=== PATIENT | male | born 1965 | race Caucasian/White ===

== ENCOUNTER → 2018-11-22 | Outpatient (CLI) | payer OTHER ==
[~2018-11-22] MED LIST: AZIT250 PO; CARI350 PO; CEPH500 PO; DIAZ10 PO; DIAZ5 PO; GABA300 PO; GABA600 PO; HYDMOR2 PO; K-Dur10 MEQ PO; LEVFLO500 PO; Lasix20 MG PO; METO2.5 PO; OXYACE5T PO; OXYC30 PO; OXYC5 PO; PENVK500 PO; POTCHL10ER PO; PRED10 PO; PRED20 PO; Percocet 5-3251 EACH PO; RXHYDMOR2 PO; TRAM50 PO
[2018-11-22 17:00] LABS: BASOPHILS ABSOLUTE AUTO 0.08 K/mm3 (0.00-0.23); BASOPHILS PERCENT AUTO 1 % (0-2); EOSINOPHILS ABSOLUTE AUTO 0.29 K/mm3 (0.00-0.68); EOSINOPHILS PERCENT AUTO 4 % (0-6); Hemoglobin 15.1 g/dL (13.5-17.5); IMMATURE GRAN ABSOLUTE AUTO 0.03 K/mm3 (0.00-0.10); IMMATURE GRAN PERCENT AUTO 0 % (0-1); LYMPHOCYTES ABSOLUTE AUTO 1.88 K/mm3 (0.84-5.20); LYMPHOCYTES PERCENT AUTO 28 % (21-46); MONOCYTES ABSOLUTE AUTO 0.78 K/mm3 (0.16-1.47); MONOCYTES PERCENT AUTO 12 % (4-13); Mean Corpuscular HGB 29.8 pg (26.0-34.0); Mean Corpuscular HGB Conc 32.8 g/dL (31.5-36.5); Mean Corpuscular Volume 91 fL (80-100); NEUTROPHILS ABSOLUTE AUTO 3.67 K/mm3 (1.96-9.15); NEUTROPHILS PERCENT AUTO 55 % (41-73); Platelet Count 247 K/mm3 (150-400); RDW Coefficient Variation 14.2 % (11.7-14.2); RDW Standard Deviation 47.7 fL (35.1-46.3); Red Blood Cell Count 5.06 M/mm3 (4.30-5.90); White Blood Cell Count 6.73 K/mm3 (4.00-11.30)
[2018-11-22 17:11] LABS: Alanine Aminotransfer (ALT/SGP 27 U/L (12-78); Albumin, Blood 3.8 g/dL (3.4-5.0); Albumin/Globulin Ratio 1.2 (0.8-1.8); Alk Phos 68 U/L (40-126); Anion Gap 9 mmol/L (6-16); Aspartate Aminotrans (AST/SGOT 19 U/L (12-37); Bilirubin, Total 0.3 mg/dL (0.1-1.0); Blood Urea Nitrogen 17 mg/dL (8-24); Bun/Creatinine Ratio 20.2 (12.0-20.0); CO2, Blood 28 mmol/L (21-32); Calcium, Blood 8.8 mg/dL (8.5-10.1); Chloride, Blood 101 mmol/L (98-108); Creatinine, Blood 0.84 mg/dL (0.60-1.20); Globulin, Blood 3.3 g/dL (2.2-4.0); Glomerular Filtration Rate >60 (60-); Glucose, Blood 84 mg/dL (70-99); Potassium, Blood 4.1 mmol/L (3.5-5.5); Sodium, Blood 138 mmol/L (136-145); Total Protein, Blood 7.1 g/dL (6.4-8.2)
== END | disposition home or self-care (01) ==
LOC: LAB EV 16:56 → LAB SHORT 16:56
PROVIDERS: Physician Assistant
DX: R60.9 Edema, unspecified (principal)
CPT/HCPCS: 80053; 83690; 85025

== ENCOUNTER 2019-04-03 22:00 | Emergency (ER) | payer OTHER ==
[~2019-04-03] VITALS: Ht 185.4 cm; Wt 124.7 kg
[2019-04-03 23:57] LABS: BASOPHILS ABSOLUTE AUTO 0.07 K/mm3 (0.00-0.23); BASOPHILS PERCENT AUTO 1 % (0-2); EOSINOPHILS PERCENT AUTO 1 % (0-6); Hematocrit 42.7 % (37.0-53.0); Hemoglobin 13.9 g/dL (13.5-17.5); IMMATURE GRAN ABSOLUTE AUTO 0.04 K/mm3 (0.00-0.10); IMMATURE GRAN PERCENT AUTO 0 % (0-1); LYMPHOCYTES ABSOLUTE AUTO 1.83 K/mm3 (0.84-5.20); LYMPHOCYTES PERCENT AUTO 14 % (21-46); MONOCYTES ABSOLUTE AUTO 1.48 K/mm3 (0.16-1.47); MONOCYTES PERCENT AUTO 11 % (4-13); Mean Corpuscular HGB 30.2 pg (26.0-34.0); Mean Corpuscular HGB Conc 32.6 g/dL (31.5-36.5); Mean Corpuscular Volume 93 fL (80-100); NEUTROPHILS ABSOLUTE AUTO 9.68 K/mm3 (1.96-9.15); NEUTROPHILS PERCENT AUTO 73 % (41-73); Platelet Count 235 K/mm3 (150-400); RDW Coefficient Variation 13.8 % (11.7-14.2); RDW Standard Deviation 47.2 fL (35.1-46.3); Red Blood Cell Count 4.61 M/mm3 (4.30-5.90)
[2019-04-04 00:16] LABS: International Normalized Ratio 1.1; Prothrombin Time Results 11.6 Sec (9.7-11.5)
[2019-04-04 00:17] LABS: Alanine Aminotransfer (ALT/SGP 37 U/L (12-78); Albumin, Blood 3.5 g/dL (3.4-5.0); Albumin/Globulin Ratio 0.9 (0.8-1.8); Alk Phos 88 U/L (50-136); Anion Gap 8 mmol/L (6-16); Aspartate Aminotrans (AST/SGOT 36 U/L (12-37); Bilirubin, Total 0.4 mg/dL (0.1-1.0); Blood Urea Nitrogen 16 mg/dL (8-24); Bun/Creatinine Ratio 18.2 (12.0-20.0); CO2, Blood 25 mmol/L (21-32); Calcium, Blood 8.6 mg/dL (8.5-10.1); Chloride, Blood 102 mmol/L (98-108); Creatinine, Blood 0.88 mg/dL (0.60-1.20); Globulin, Blood 3.7 g/dL (2.2-4.0); Glomerular Filtration Rate >60 (60-); Glucose, Blood 97 mg/dL (70-99); Potassium, Blood 3.9 mmol/L (3.5-5.5); Sodium, Blood 135 mmol/L (136-145); Total Protein, Blood 7.2 g/dL (6.4-8.2)
[2019-04-04] MEDS ORDERED: Augmentin 875-1 EACH PO (02:24)
== END 2019-04-04 03:00 | disposition home or self-care (01) ==
LOC: ER 22:00
PROVIDERS: Emergency Medicine
DX: J32.9 Chronic sinusitis, unspecified (principal); L98.499 Non-pressure chronic ulcer of skin of other sites with unspecified severity; Z88.6 Allergy status to analgesic agent; Z88.5 Allergy status to narcotic agent; Z88.8 Allergy status to other drugs, medicaments and biological substances; Z87.891 Personal history of nicotine dependence
CPT/HCPCS: 36415; 70450; 70486; 71046; 80053; 84145; 85025; 85610; 85730; 93005; 93010; 96372; 99284-25; J2270; J7030

== ENCOUNTER 2019-06-29 10:53 | Inpatient (IN) | payer OTHER ==
[~2019-06-29] VITALS: Ht 185.4 cm; Wt 130.0 kg
[~2019-06-29 10:53] MED LIST changes: +Augmentin 875-1 EACH PO
[2019-06-29 12:01] LABS: BASOPHILS ABSOLUTE AUTO 0.05 K/mm3 (0.00-0.23); BASOPHILS PERCENT AUTO 0 % (0-2); EOSINOPHILS PERCENT AUTO 0 % (0-6); Hematocrit 44.7 % (37.0-53.0); Hemoglobin 14.9 g/dL (13.5-17.5); IMMATURE GRAN ABSOLUTE AUTO 0.11 K/mm3 (0.00-0.10); IMMATURE GRAN PERCENT AUTO 1 % (0-1); LYMPHOCYTES PERCENT AUTO 4 % (21-46); MONOCYTES ABSOLUTE AUTO 0.66 K/mm3 (0.16-1.47); MONOCYTES PERCENT AUTO 4 % (4-13); Mean Corpuscular HGB 30.4 pg (26.0-34.0); Mean Corpuscular HGB Conc 33.3 g/dL (31.5-36.5); Mean Corpuscular Volume 91 fL (80-100); Mean Platelet Volume 10.7 fL (9.1-12.4); NEUTROPHILS ABSOLUTE AUTO 14.45 K/mm3 (1.96-9.15); NEUTROPHILS PERCENT AUTO 91 % (41-73); Platelet Count 193 K/mm3 (150-400); RDW Coefficient Variation 14.1 % (11.7-14.2); RDW Standard Deviation 47.8 fL (35.1-46.3); White Blood Cell Count 15.87 K/mm3 (4.00-11.30)
[2019-06-29 12:21] LABS: Alanine Aminotransfer (ALT/SGP 25 U/L (12-78); Albumin/Globulin Ratio 0.8 (0.8-1.8); Alk Phos 62 U/L (50-136); Anion Gap 8 mmol/L (6-16); Aspartate Aminotrans (AST/SGOT 21 U/L (12-37); Bilirubin, Total 0.7 mg/dL (0.1-1.0); Blood Urea Nitrogen 18 mg/dL (8-24); Bun/Creatinine Ratio 18.7 (12.0-20.0); CO2, Blood 23 mmol/L (21-32); Calcium, Blood 8.5 mg/dL (8.5-10.1); Chloride, Blood 99 mmol/L (98-108); Creatinine, Blood 0.97 mg/dL (0.60-1.20); Glomerular Filtration Rate >60 (60-); Glucose, Blood 123 mg/dL (70-99); Magnesium, Blood 2.1 mg/dL (1.6-2.4); Potassium, Blood 3.8 mmol/L (3.5-5.5); Sodium, Blood 130 mmol/L (136-145)
--- NOTE | 2019-06-29 16:48 | NUR ---
SUMMARY PT ADMITTED FROM THE ER FOR L LEG CELLULITIS, PT ALERT AND ORIENTED, ABLE TO STAND AND PIVOT FROM THE GURNEY TO THE BED, PT IS PLEASANT AND COOPERTIVE WITH CARE, MED PER EMAR FOR C/O L LEG PAIN, L LEG IS RED, HOT, SWOLLEN, AND EDEMETOUS, OUTLINED WITH A PEN, PT ORIENTED TO THE ROOM AND CALL SYSTEM, CONT PULSE OX STARTED FOR SNORING RESPIRATIONS WHEN PT ASLEEP ON PAIN MEDICATIONS, VSS, NO ACUTE CHANGES, WILL CONT TO MONITOR
--- NOTE | 2019-06-29 20:42 | NUR ---
NOTIFIED BY GLOBE CLEANER THAT PT HAD A 10 BEAT RUN OF SVT WITH 2 BEATS NSR AND THEN ANOTHER 9 BEATS OF SVT BEFORE RETURNING TO SINUS TACH IN 110'S WHICH HAS BEEN WHAT PT HAS BEEN RUNNING SINCE ADMIT. NOTIFIED BASSEM EMANUEL REGUARDING SVT. BASSEM ORDERED A BMP TO BE DRAWN AT THIS TIME. PT DENIES SOB, HEART PALPITATIONS, OR ANY OTHER SYMPTOMS ASIDE FROM DISCOMFORT OF HIS L LEG. WILL CONTINUE TO MONITOR.
[2019-06-29 21:23] LABS: Anion Gap 7 mmol/L (6-16); Blood Urea Nitrogen 17 mg/dL (8-24); Bun/Creatinine Ratio 22.6 (12.0-20.0); CO2, Blood 22 mmol/L (21-32); Chloride, Blood 103 mmol/L (98-108); Creatinine, Blood 0.75 mg/dL (0.60-1.20); Glomerular Filtration Rate >60 (60-); Glucose, Blood 130 mg/dL (70-99); Potassium, Blood 3.8 mmol/L (3.5-5.5); Sodium, Blood 132 mmol/L (136-145)
--- NOTE | 2019-06-30 05:08 | NUR ---
SENIOR ASIC ENGINEER SUMMARY PT AAOX4 AND PLEASANT. LLE RED AND SWOLLEN, HOWEVER REDNESS HAS NOT EXTENDED PAST THE MARKED LINES. PT REPORTS LEG VERY PAINFUL, MEDICATED WITH DILAUDID PER EMAR WHICH PT REPORTS PROVIDES ADEQUATE PAIN RELIEF. PT HR HAS BEEN IN 100-110'S SINCE ADMIT. NOTIFIED BY TELE THAT PT HR HAD SLOWLY INCREASED TO HIGH 120'S. CHECKED PT'S TEMP WHICH WAS 102 DEGREES. GAVE PT TYLENOL, TEMP WITH MORNING VITALS 98.4 AND HR 90-100. OTHER VSS, WILL CONTINUE TO MONITOR.
[2019-06-30 08:14] LABS: BASOPHILS ABSOLUTE AUTO 0.04 K/mm3 (0.00-0.23); BASOPHILS PERCENT AUTO 0 % (0-2); EOSINOPHILS ABSOLUTE AUTO 0.03 K/mm3 (0.00-0.68); EOSINOPHILS PERCENT AUTO 0 % (0-6); Hematocrit 44.3 % (37.0-53.0); Hemoglobin 14.6 g/dL (13.5-17.5); IMMATURE GRAN ABSOLUTE AUTO 0.08 K/mm3 (0.00-0.10); IMMATURE GRAN PERCENT AUTO 1 % (0-1); LYMPHOCYTES ABSOLUTE AUTO 0.53 K/mm3 (0.84-5.20); LYMPHOCYTES PERCENT AUTO 4 % (21-46); MONOCYTES ABSOLUTE AUTO 0.53 K/mm3 (0.16-1.47); MONOCYTES PERCENT AUTO 4 % (4-13); Mean Corpuscular Volume 91 fL (80-100); Mean Platelet Volume 10.9 fL (9.1-12.4); NEUTROPHILS PERCENT AUTO 90 % (41-73); Platelet Count 155 K/mm3 (150-400); RDW Coefficient Variation 14.2 % (11.7-14.2); RDW Standard Deviation 47.7 fL (35.1-46.3); Red Blood Cell Count 4.86 M/mm3 (4.30-5.90); White Blood Cell Count 12.21 K/mm3 (4.00-11.30)
[2019-06-30 08:37] LABS: Alanine Aminotransfer (ALT/SGP 26 U/L (12-78); Albumin, Blood 2.5 g/dL (3.4-5.0); Albumin/Globulin Ratio 0.6 (0.8-1.8); Alk Phos 74 U/L (50-136); Anion Gap 5 mmol/L (6-16); Aspartate Aminotrans (AST/SGOT 35 U/L (12-37); Bilirubin, Total 0.7 mg/dL (0.1-1.0); Blood Urea Nitrogen 14 mg/dL (8-24); Bun/Creatinine Ratio 17.3 (12.0-20.0); CO2, Blood 27 mmol/L (21-32); Calcium, Blood 8.2 mg/dL (8.5-10.1); Chloride, Blood 101 mmol/L (98-108); Creatinine, Blood 0.81 mg/dL (0.60-1.20); Glomerular Filtration Rate >60 (60-); Glucose, Blood 106 mg/dL (70-99); Potassium, Blood 3.7 mmol/L (3.5-5.5); Sodium, Blood 133 mmol/L (136-145); Total Protein, Blood 6.5 g/dL (6.4-8.2)
--- NOTE | 2019-06-30 17:17 | NUR ---
SUMMARY PT RESTING IN BED WATCHING TV, PT HAS BEEN ALERT AND ORIENTED, SLEPT OFF AND ON T/O THE DAY, PT ABLE TO STAND AND USE THE WALKER TO GET TO THE RESTROOM, PT ALSO WAS ABLE TO STAND FOR A SHOWER FOR THIS MORNING ALSO, PT MED PER EMAR FOR PAIN, REDNESS TO THE LEFT LEG WAS OUTLINED YESTERDAY, IT HAS NOT INCREASED IN SIZE, PT HAS HAD SEVERAL FRIENDS AND HIS GIRLFRIEND IN TO VISIT, PT MED PER EMAR FOR FEVER OFF AND ON WITH GOOD RESULTS, VSS, NO ACUTE CHANGES, WILL CONT TO MONITOR
--- NOTE | 2019-06-30 22:33 | NUR ---
@2045 ASSUMED CARE OF PT. TRANSFERRED INTO ROOM 341. COMFORT CARE/HOSPICE, FAMILY AT BEDSIDE. FAMILY DENIES NEEDS AT THIS TIME. WILL CONT TO MONITOR.
--- NOTE | 2019-07-01 03:51 | NUR ---
SHIFT SUMMARY- PT. SLEPT ON/OFF T/O THE SHIFT. C/O PAIN IN THE LT LEG. DILAUDID GIVEN PER EMAR, PT. TOLERATED WELL. HR AT 117 WITH TEMP OF 102. TYLENOL GIVEN. RECHECK OF TEMP AT 98.8. PT. ON CONTINOUS SLEEP OXIMETRY FOR POSS SLEEP APNEA. LT. LEG REMAINS RED AND SWOLLEN, HAS BEEN UP WITH WALKER AND 1 ASSIST TO THE BATHROOM. DENIES ANY NEEDS AT THIS TIME. IV FLUIDS RUNNING. CALL LIGHT WITHIN REACH AND SIDE RAILS UP X2. WILL CONT TO MONITOR.
--- NOTE | 2019-07-01 05:13 | NUR ---
POWERGLIDE NOT WORKING. PT. A DIFFICULT STICK. CHARGE NURSE FRANCES CARRILLO NOTIFIED. CALL PLACED TO SEVERAL DEPTS. FOR ASSISTANCE IN RESTARTING IV. PT. IS RESTING QUIETLY IN BED, NO APPARENT DISTRESS NOTED. WILL CONT TO ATTEMPT TO REESTABLISH IV ACCESS FOR SCHEDULED IV ABX'S AND FLUIDS.
[2019-07-01 05:25] LABS: BASOPHILS ABSOLUTE AUTO 0.04 K/mm3 (0.00-0.23); BASOPHILS PERCENT AUTO 0 % (0-2); EOSINOPHILS ABSOLUTE AUTO 0.01 K/mm3 (0.00-0.68); EOSINOPHILS PERCENT AUTO 0 % (0-6); Hematocrit 40.1 % (37.0-53.0); Hemoglobin 13.3 g/dL (13.5-17.5); IMMATURE GRAN ABSOLUTE AUTO 0.08 K/mm3 (0.00-0.10); IMMATURE GRAN PERCENT AUTO 1 % (0-1); LYMPHOCYTES ABSOLUTE AUTO 0.52 K/mm3 (0.84-5.20); LYMPHOCYTES PERCENT AUTO 4 % (21-46); MONOCYTES ABSOLUTE AUTO 0.97 K/mm3 (0.16-1.47); MONOCYTES PERCENT AUTO 8 % (4-13); Mean Corpuscular HGB 30.1 pg (26.0-34.0); Mean Corpuscular HGB Conc 33.2 g/dL (31.5-36.5); Mean Corpuscular Volume 91 fL (80-100); Mean Platelet Volume 10.7 fL (9.1-12.4); NEUTROPHILS ABSOLUTE AUTO 10.22 K/mm3 (1.96-9.15); NEUTROPHILS PERCENT AUTO 86 % (41-73); Platelet Count 167 K/mm3 (150-400); RDW Coefficient Variation 14.2 % (11.7-14.2); RDW Standard Deviation 47.8 fL (35.1-46.3); Red Blood Cell Count 4.42 M/mm3 (4.30-5.90); White Blood Cell Count 11.84 K/mm3 (4.00-11.30)
[2019-07-01 05:54] LABS: Anion Gap 8 mmol/L (6-16); Blood Urea Nitrogen 12 mg/dL (8-24); Bun/Creatinine Ratio 18.3 (12.0-20.0); CO2, Blood 24 mmol/L (21-32); Calcium, Blood 7.8 mg/dL (8.5-10.1); Chloride, Blood 102 mmol/L (98-108); Creatinine, Blood 0.66 mg/dL (0.60-1.20); Glomerular Filtration Rate >60 (60-); Glucose, Blood 134 mg/dL (70-99); Potassium, Blood 3.1 mmol/L (3.5-5.5); Sodium, Blood 134 mmol/L (136-145)
--- NOTE | 2019-07-01 18:34 | NUR ---
PATIENT IS ALERT AND ORIENTED AND COOPERATIVE WITH CARE. PATIENT CALLS VIDHI TO USE THE BATHROOM. PATIENT USES THE FWW WITH SBA TO THE BATHROOM. HE CAN PIVOT ON HIS RIGHT FOOT AND KEEP PRESSURE OFF HIS LEFT FOOT. PATIENT IS CURRENTLY ON HIS WAY OUTSIDE TO SMOKE A CIGAR. PATIENT COMPLAINED OF PAIN THROUGHOUT THE DAY, TREATED PER EMAR.
[2019-07-02 05:10] LABS: BASOPHILS ABSOLUTE AUTO 0.05 K/mm3 (0.00-0.23); BASOPHILS PERCENT AUTO 0 % (0-2); EOSINOPHILS ABSOLUTE AUTO 0.16 K/mm3 (0.00-0.68); EOSINOPHILS PERCENT AUTO 1 % (0-6); Hemoglobin 13.3 g/dL (13.5-17.5); IMMATURE GRAN PERCENT AUTO 2 % (0-1); LYMPHOCYTES ABSOLUTE AUTO 1.06 K/mm3 (0.84-5.20); LYMPHOCYTES PERCENT AUTO 8 % (21-46); MONOCYTES ABSOLUTE AUTO 1.44 K/mm3 (0.16-1.47); MONOCYTES PERCENT AUTO 11 % (4-13); Mean Corpuscular HGB 30.5 pg (26.0-34.0); Mean Corpuscular HGB Conc 33.3 g/dL (31.5-36.5); Mean Corpuscular Volume 92 fL (80-100); Mean Platelet Volume 10.6 fL (9.1-12.4); NEUTROPHILS ABSOLUTE AUTO 10.29 K/mm3 (1.96-9.15); NEUTROPHILS PERCENT AUTO 78 % (41-73); Platelet Count 212 K/mm3 (150-400); RDW Coefficient Variation 14.1 % (11.7-14.2); RDW Standard Deviation 48.5 fL (35.1-46.3); Red Blood Cell Count 4.36 M/mm3 (4.30-5.90)
[2019-07-02 05:33] LABS: Anion Gap 8 mmol/L (6-16); Blood Urea Nitrogen 12 mg/dL (8-24); CO2, Blood 27 mmol/L (21-32); Calcium, Blood 7.9 mg/dL (8.5-10.1); Chloride, Blood 100 mmol/L (98-108); Creatinine, Blood 0.75 mg/dL (0.60-1.20); Glomerular Filtration Rate >60 (60-); Glucose, Blood 134 mg/dL (70-99); Potassium, Blood 3.2 mmol/L (3.5-5.5); Sodium, Blood 135 mmol/L (136-145)
--- NOTE | 2019-07-02 05:48 | NUR ---
SHIFT SUMMARY A/O INDEPENDENT IN ROOM. C/O PAIN IN L LEG AND MEDICATED PER EMAR X3. SAID HE COULDN'T GET MUCH SLEEP BECAUSE HE WAS WORRYING ABOUT HIS GF WHO HAD CALLED HIM SAYING SHE WAS HEARING VOICES IN HER HEAD AGAIN AND WAS GOING TO KILL HERSELF. PT SAID HE CALLED THE POLICE TO GO CHECK ON HER AT HOME. HE SAID HE WAS WORRYING ALL NIGHT ABOUT HER AND THAT IT ADDED MORE STRESS TO HIS LIFE. SS AND SPIRITUAL CARE CONSULT ORDERED FOR THIS.
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
--- NOTE | 2019-07-02 18:42 | NUR ---
PT REMAINS A/0, INDEPENDENT IN THE ROOM, MEDICATED FOR PAIN TO HIS LEFT LEG X3 TODAY PER EMAR. IV LASIX ADDED TO MEDICATIONS, NO ACUTE CHANGES NOTED THIS SHIFT. WILL CONTINUE TO MONITOR AND REPORT TO ONCOMING RN
[2019-07-03 04:59] LABS: BASOPHILS ABSOLUTE AUTO 0.05 K/mm3 (0.00-0.23); BASOPHILS PERCENT AUTO 0 % (0-2); EOSINOPHILS ABSOLUTE AUTO 0.13 K/mm3 (0.00-0.68); EOSINOPHILS PERCENT AUTO 1 % (0-6); Hematocrit 39.1 % (37.0-53.0); Hemoglobin 12.9 g/dL (13.5-17.5); IMMATURE GRAN ABSOLUTE AUTO 0.38 K/mm3 (0.00-0.10); IMMATURE GRAN PERCENT AUTO 3 % (0-1); LYMPHOCYTES ABSOLUTE AUTO 1.04 K/mm3 (0.84-5.20); LYMPHOCYTES PERCENT AUTO 9 % (21-46); MONOCYTES ABSOLUTE AUTO 1.24 K/mm3 (0.16-1.47); MONOCYTES PERCENT AUTO 10 % (4-13); Mean Corpuscular HGB 29.4 pg (26.0-34.0); Mean Platelet Volume 10.6 fL (9.1-12.4); NEUTROPHILS ABSOLUTE AUTO 9.18 K/mm3 (1.96-9.15); NEUTROPHILS PERCENT AUTO 76 % (41-73); Platelet Count 238 K/mm3 (150-400); RDW Coefficient Variation 14.1 % (11.7-14.2); RDW Standard Deviation 46.1 fL (35.1-46.3); Red Blood Cell Count 4.39 M/mm3 (4.30-5.90); White Blood Cell Count 12.02 K/mm3 (4.00-11.30)
[2019-07-03 05:00] LABS: Mean Corpuscular Volume 89 fL (80-100)
[2019-07-03 05:21] LABS: Anion Gap 8 mmol/L (6-16); Blood Urea Nitrogen 14 mg/dL (8-24); Bun/Creatinine Ratio 19.8 (12.0-20.0); CO2, Blood 31 mmol/L (21-32); Calcium, Blood 8.1 mg/dL (8.5-10.1); Chloride, Blood 94 mmol/L (98-108); Creatinine, Blood 0.71 mg/dL (0.60-1.20); Glomerular Filtration Rate >60 (60-); Glucose, Blood 131 mg/dL (70-99); Potassium, Blood 3.1 mmol/L (3.5-5.5); Sodium, Blood 133 mmol/L (136-145)
--- NOTE | 2019-07-03 06:35 | NUR ---
SHIFT SUMMARY PT C/O PAIN AND MEDICATED PER EMAR. KEPT L LEG ELEVATED. HE WAS ABLE TO GET TO SLEEP AFTER PAIN MED ADMINISTRATIONS. SLEPT ON AND OFF T/O NIGHT. CALL LIGHT IN REACH.
--- NOTE | 2019-07-03 13:42 | NUR ---
Patient is lying in bed with his leg elevated. Patient begins to tell me about his desire to live a better life and so we talk about what that might look like and how he might get there. I provide; empathic listening, pastoral school counsellor, inspirational material and prayer. Patient responds well and voices appreciation for the time and care.
--- NOTE | 2019-07-03 18:21 | NUR ---
PATIENTS LEG CONTINUES TO WEEP. SCOTT HAS BEEN REPLACED MULTIPLE TIMES THIS SHIFT. PATIENT CONTINUES TO GO OUT TO SMOKE . HE IS PLEASANT AND COMPLIANT WITH CARES. PAIN MEDS REQUESTED AND GIVEN PER EMAR.
--- NOTE | 2019-07-04 04:26 | NUR ---
TORPEDO SPECIALIST SUMMARY NO ACUTE CHANGES THIS SHIFT. PT AAOX4 AND PLEASANT. CONTINUES TO HAVE REDNESS/SWELLING OF LLE ALONG WITH PAIN. MEDICATED WITH IV DILAUDID PER EMAR WITH GOOD PAIN RELIEF. PT HAS BEEN ABLE TO SLEEP MOST OF THE NIGHT. CONTINUING IV ABX. VSS, WILL CONTINUE TO MONITOR.
[2019-07-04 06:58] LABS: BASOPHILS ABSOLUTE AUTO 0.06 K/mm3 (0.00-0.23); BASOPHILS PERCENT AUTO 1 % (0-2); EOSINOPHILS ABSOLUTE AUTO 0.17 K/mm3 (0.00-0.68); EOSINOPHILS PERCENT AUTO 2 % (0-6); Hematocrit 37.4 % (37.0-53.0); Hemoglobin 12.5 g/dL (13.5-17.5); IMMATURE GRAN ABSOLUTE AUTO 0.56 K/mm3 (0.00-0.10); IMMATURE GRAN PERCENT AUTO 5 % (0-1); LYMPHOCYTES ABSOLUTE AUTO 1.26 K/mm3 (0.84-5.20); LYMPHOCYTES PERCENT AUTO 11 % (21-46); MONOCYTES PERCENT AUTO 13 % (4-13); Mean Corpuscular HGB 29.6 pg (26.0-34.0); Mean Corpuscular HGB Conc 33.4 g/dL (31.5-36.5); Mean Corpuscular Volume 89 fL (80-100); Mean Platelet Volume 10.5 fL (9.1-12.4); NEUTROPHILS ABSOLUTE AUTO 7.76 K/mm3 (1.96-9.15); NEUTROPHILS PERCENT AUTO 69 % (41-73); Platelet Count 301 K/mm3 (150-400); RDW Coefficient Variation 14.1 % (11.7-14.2); RDW Standard Deviation 45.6 fL (35.1-46.3); Red Blood Cell Count 4.22 M/mm3 (4.30-5.90); White Blood Cell Count 11.21 K/mm3 (4.00-11.30)
[2019-07-04 07:10] LABS: Anion Gap 8 mmol/L (6-16); Blood Urea Nitrogen 13 mg/dL (8-24); Bun/Creatinine Ratio 20.7 (12.0-20.0); CO2, Blood 34 mmol/L (21-32); Chloride, Blood 92 mmol/L (98-108); Creatinine, Blood 0.63 mg/dL (0.60-1.20); Glomerular Filtration Rate >60 (60-); Glucose, Blood 104 mg/dL (70-99); Magnesium, Blood 2.3 mg/dL (1.6-2.4); Phosphorus, Blood 3.3 mg/dL (2.5-4.9); Potassium, Blood 3.3 mmol/L (3.5-5.5); Sodium, Blood 134 mmol/L (136-145)
--- NOTE | 2019-07-04 19:27 | NUR ---
summary PT IS A/O X4, PLEASANT AFFECT. ABLE TO AMBULATE SHORT DISTANCE TO BR UNASSISTED. L LEG CONTINUES RED, WARM, WEEPING, EDEMATOUS, 4+. REDNESS IS MAPPED, APPEARS TO BE RECEDING. PT STATE SENSATION LLE IMPROVED. HE STATE CONTINUING PAIN LLE BUT MORE R KNEE. HAVE GIVEN IV DILAUDID 2MG X2, PO DILAUDID 1MG X1, NORCO X2 FOR PAIN CONTROL. IV ANTIBX CONTINUE HOWEVER MAINTAINING IV ACCESS HAS BEEN AN ISSUE TODAY. THIS AM NOC RN REPORT RUE POWERGLIDE FAILED, PORTFOLIO MANAGEMENT MARKETING IN TO ASSESS, D/C'D @ THAT TIME. LAC 22GA IV FAILED APPROX 1000. PIE BAKER IN TO START RAC 18GA w ULTRASOUND HOWEVER 1ST ATTEMPT TO USE FOR ANTIBX FAILED/DC'D. NO IV ACCESS, PHARMACY NOTIFIED, NOC PORTFOLIO MANAGEMENT MARKETING WILL ATTEMPT TO PLACE POWERGLIDE.
--- NOTE | 2019-07-05 04:49 | NUR ---
SHIFT SUMMARY NEW POWERGLIDE ESTABLISHED TO SABRINA. PT BEHIND ON ABX DUE TO LOSS OF IV ACCESS DURING DAYSHIFT. MIDNIGHT DOSES OF ABX WERE HELD PER PHARMACIST INSTRUCTION. PT. MEDICATED FOR PAIN PRN PER ORDERS. LLE REMAINS SWOLLEN +4 EDEMA, HOT TO TOUCH AND WEEPING YELLOW DRAINAGE. PT HAS BEEN INDEPENDENT IN THE ROOM USES HIS WHEELCHAIR. PT HAS RESTED MOST OF THE NIGHT. WAKES UP OCCSAIONALLY TO REQUESTS FOOD. NO ACUTE CHANGES OVERNIGHT. WILL CONTINUE TO MONITOR AND REPORT TO ONCOMING RN.
--- NOTE | 2019-07-05 15:30 | NUR ---
SUMMARY PT A/O X4 T/O DAY, GENERALLY PLEASANT HOWEVER STATE CONTINUING WEAKNESS, FATIGUE, MALAISE. L LEG CELLULITIS CONTINUES. LLE EDEMATOUS 4+, REDNESS HAS BEEN RECEDING SOMEWHAT, CONTINUES WARM TO TOUCH & VERY TENDER/PAINFUL PER PT. HAVE GIVEN NORCO & PROVIDED ICE PACKS FOR RELIEF. PT STATE HX LYMPHEDEMA LEGS, R FOOT EDEMA NOTED WELL. HE STATE R KNEE CAUSES DISCOMFORT/PAIN, STATE NEED TO GET UP & AMBULATE FOR RELIEF, ENCOURAGED. HE WENT OUTSIDE X1 w W/C IND THIS AM. IV ANTIBX CONTINUE @ THIS TIME. SABRINA PG IV SITE PATENT. VSS, AFEBRILE.
[2019-07-05 15:48] LABS: Vancomycin, Trough 17.9 ug/mL (5.0-10.0)
[2019-07-06 05:53] LABS: Anion Gap 7 mmol/L (6-16); Blood Urea Nitrogen 21 mg/dL (8-24); Bun/Creatinine Ratio 25.6 (12.0-20.0); CO2, Blood 36 mmol/L (21-32); Calcium, Blood 7.9 mg/dL (8.5-10.1); Chloride, Blood 90 mmol/L (98-108); Creatinine, Blood 0.82 mg/dL (0.60-1.20); Glomerular Filtration Rate >60 (60-); Glucose, Blood 114 mg/dL (70-99); Phosphorus, Blood 3.1 mg/dL (2.5-4.9); Potassium, Blood 3.2 mmol/L (3.5-5.5); Sodium, Blood 133 mmol/L (136-145)
--- NOTE | 2019-07-06 06:21 | NUR ---
SHIFT SUMMARY PT PLEASANT, EMOTIONAL AT TIMES. LEFT LEG REMAINS RED, HOT, AND SWOLLEN. SOME WEEPING NOTED FROM LEFT LEG. RIGHT LEG SWOLLEN WELL. THIS IS BASELINE FOR PT. PT HAS LYMPHADEMA. PT COMPLAINS OF PAIN IN R KNEE AND LEFT LEG. MEDICATED WITH NORCO 10/325 1 TAB X 2 AND 1 MG DILAUDID IV X 2. PT SLEEPS OFF AND ON THROUGHOUT THE NIGHT WHEN NOT BEING WOKEN WITH PAIN. PT AMBULATED WITH WHEELCHAIR OUTSIDE WITH HIS EARLY IN SHIFT. TOLERATED AMBULATION WELL. VITAL SIGNS STABLE. NO ACUTE CHANGES. WILL CONTINUE TO MONITOR AND REPORT TO DAY RN.
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
--- NOTE | 2019-07-07 08:27 | NUR ---
SHIFT SUMMARY PATIENT ANXIOUS THROUGHOUT THE NIGHT. PATIENT'S SIGNIFICANT OTHER STOPPED BY AT THE BEGINNING OF THE SHIFT AND THEN LEFT AFTER SEVERAL HOURS. PATIENT THEN BECAME EXTREMALLY WORRIED ABOUT HER BECAUSE HE WAS UNABLE TO GET AHOLD OF HER. AND WANTED TO LEAVE AMA TO GO LOOK FOR HER. PATIENT EDUCATED ON THE PRO'S AND CON'S OF LEAVING AMA AND PATIENT EVENTUALLY DECIDED TO STAY. PATIENT ALSO EVENTUALLY ABLE TO REACH HIS SIGNFICANT OTHER AND THAT HELPED HIS ANXIETY DECREASE. HOWEVER, PATIENT CONTINUED TO BE ANXIOUS THROUGHOUT THE REST OF THE NIGHT. PATIENT DID APPEAR TO BE ABLE TO SETTLE DOWN AND FALL ASLEEP FOR SEVERAL HOURS AT THE END OF THE SHIFT. PATIENT MEDICATED FOR PAIN CHARTED. PATIENT NOW REQUESTING PO PAIN MEDICATION FIRST AND WOULD LIKE TO USE THE IV PAIN MEDICATION ONLY FOR BREAKTHROUGH PAIN NEEDED. PATIENT'S IV ABX GIVEN PER EMAR. REPORT GIVEN TO ONCOMING RN.
[2019-07-07 08:28] LABS: Albumin, Blood 2.2 g/dL (3.4-5.0); Anion Gap 9 mmol/L (6-16); Blood Urea Nitrogen 22 mg/dL (8-24); Bun/Creatinine Ratio 25.5 (12.0-20.0); CO2, Blood 37 mmol/L (21-32); Calcium, Blood 8.1 mg/dL (8.5-10.1); Chloride, Blood 88 mmol/L (98-108); Creatinine, Blood 0.86 mg/dL (0.60-1.20); Glomerular Filtration Rate >60 (60-); Glucose, Blood 109 mg/dL (70-99); Phosphorus, Blood 3.4 mg/dL (2.5-4.9); Potassium, Blood 3.1 mmol/L (3.5-5.5); Sodium, Blood 134 mmol/L (136-145)
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
[2019-07-07] MEDS ORDERED: Docusate Sodiu1 EACH PO (12:38)
[2019-07-07] MEDS ORDERED: HIGH POTENCY P1 EACH PO (12:39)
[2019-07-07] MEDS ORDERED: CEPH250A PO (12:40)
[2019-07-07] MEDS ORDERED: HYDMOR2 PO (12:40)
[2019-07-07] MEDS ORDERED: Sulfamethoxazo1 EAC4 PO (12:41)
--- NOTE | 2019-07-07 13:16 | NUR ---
DISCHARGE SUMMARY PT DISCHARGED TO HOME. PT LEFT ROOM VIA WHEELCHAIR WITH [facility] AT 1310. DC INSTRUCTIONS DISCUSSED WITH PT AT 1300. DR PIERRE CALLED NURSE AFTER MEDICATION REC COMPLETED AND FINALIZED SO NURSE CALLED PRESCRIPTION IN TO PHARMACY AT 1307. PT EDUCATED ON CELLULITIS AND MEDICATIONS. INSTRUCTED TO FOLLOW UP WITH PCP, PT AGREES. POWERGLIDE DC'D AND BELONGINGS RETURNED.
== END 2019-07-07 13:10 | disposition home or self-care (01) | DRG 871 ==
LOC: ER 10:53 → MEDS 12:27 → ENPENDDIS 07-07 11:02 → MEDS 07-07 13:10
PROVIDERS: Emergency Medicine; Internal Medicine; Nurse Practitioner Acute Care; ADMIT Internal Medicine
DX: A40.9 Streptococcal sepsis, unspecified (principal); G93.41 Metabolic encephalopathy; L03.116 Cellulitis of left lower limb; E87.1 Hypo-osmolality and hyponatremia; R65.20 Severe sepsis without septic shock; F17.210 Nicotine dependence, cigarettes, uncomplicated; Q82.0 Hereditary lymphedema; E66.9 Obesity, unspecified; E87.6 Hypokalemia; Z68.34 Body mass index [BMI] 34.0-34.9, adult; T50.2X5A Adverse effect of carbonic-anhydrase inhibitors, benzothiadiazides and other diuretics, initial encounter; Y92.239 Unspecified place in hospital as the place of occurrence of the external cause
CPT/HCPCS: 36415; 73701; 80048; 80053; 80069; 80202; 83605; 83735; 83880; 84145; 85025; 87040; 94762; 96374; 96375; 99284-25; A9270; J0690; J1170; J1650; J1940; J3370; J7030; J7050; J7120; Q9967

== ENCOUNTER 2019-07-14 10:16 | Inpatient (IN) | payer OTHER ==
[~2019-07-14] VITALS: Ht 182.9 cm; Wt 131.3 kg
[~2019-07-14 10:16] MED LIST changes: +CEPH250A PO; +Docusate Sodiu1 EACH PO; +HIGH POTENCY P1 EACH PO; +Sulfamethoxazo1 EAC4 PO
[2019-07-14 11:57] LABS: BASOPHILS PERCENT AUTO 1 % (0-2); EOSINOPHILS ABSOLUTE AUTO 0.09 K/mm3 (0.00-0.68); EOSINOPHILS PERCENT AUTO 1 % (0-6); Hematocrit 40.6 % (37.0-53.0); Hemoglobin 12.8 g/dL (13.5-17.5); IMMATURE GRAN ABSOLUTE AUTO 0.08 K/mm3 (0.00-0.10); IMMATURE GRAN PERCENT AUTO 1 % (0-1); LYMPHOCYTES PERCENT AUTO 22 % (21-46); MONOCYTES ABSOLUTE AUTO 1.14 K/mm3 (0.16-1.47); MONOCYTES PERCENT AUTO 12 % (4-13); Mean Corpuscular HGB 29.3 pg (26.0-34.0); Mean Corpuscular HGB Conc 31.5 g/dL (31.5-36.5); Mean Platelet Volume 9.3 fL (9.1-12.4); NEUTROPHILS ABSOLUTE AUTO 6.25 K/mm3 (1.96-9.15); NEUTROPHILS PERCENT AUTO 64 % (41-73); Platelet Count 776 K/mm3 (150-400); RDW Coefficient Variation 13.5 % (11.7-14.2); RDW Standard Deviation 46.8 fL (35.1-46.3); Red Blood Cell Count 4.37 M/mm3 (4.30-5.90); White Blood Cell Count 9.76 K/mm3 (4.00-11.30)
[2019-07-14 12:05] LABS: Mean Corpuscular Volume 93 fL (80-100)
[2019-07-14 12:20] LABS: Alanine Aminotransfer (ALT/SGP 23 U/L (12-78); Albumin, Blood 2.7 g/dL (3.4-5.0); Albumin/Globulin Ratio 0.5 (0.8-1.8); Alk Phos 106 U/L (50-136); Anion Gap 5 mmol/L (6-16); Aspartate Aminotrans (AST/SGOT 21 U/L (12-37); Bilirubin, Total 0.2 mg/dL (0.1-1.0); Blood Urea Nitrogen 13 mg/dL (8-24); Bun/Creatinine Ratio 19.4 (12.0-20.0); CO2, Blood 29 mmol/L (21-32); Chloride, Blood 104 mmol/L (98-108); Creatinine, Blood 0.67 mg/dL (0.60-1.20); Globulin, Blood 5.1 g/dL (2.2-4.0); Glomerular Filtration Rate >60 (60-); Glucose, Blood 80 mg/dL (70-99); Potassium, Blood 4.6 mmol/L (3.5-5.5); Sodium, Blood 138 mmol/L (136-145); Total Protein, Blood 7.8 g/dL (6.4-8.2)
[2019-07-14] MEDS ORDERED: K-Dur20 MEQ PO (14:05)
[2019-07-14] MEDS ORDERED: SPIR50 PO (14:06)
[2019-07-14] MEDS ORDERED: Potassium Chlo20 ME1 PO (14:06)
[2019-07-14] MEDS ORDERED: FURO20 PO (14:07)
--- NOTE | 2019-07-14 18:55 | NUR ---
SHIFT SUMMARY JOSE ARRIVED FROM THE ED AROUND 330PM. L POWERGLIDE STARTED BY PROCEDURE NURSE. SBA VS INDEP TO BR. PAIN NOT WELL CONTROLLED BY 1MG IV DILAUDID, SO DR LICEA INCREASED TO 2MG Q2. PICS TAKEN OF LLE CELLULITIS AND MARKED AROUND BORDERS WITH SKIN MARKER. TOOK MEDS PRESCRIBED. CALL LIGHT IN REACH. WCTM
--- NOTE | 2019-07-15 03:17 | NUR ---
PT. REQUESTING TO GO OUTSIDE TO GET FRESH AIR. STATES GIRLFRIEND WILL TAKE HIM IN WHEELCHAIR. DISCUSSED WITH PT. THE RISKS AND SAFETY ISSUE OF GOING OUTSIDE WITH HIS SWOLLEN LE AND UNSTEADY GAIT. PT. VERBALIZED UNDERSTANDING, BUT INSISTED ON WANTING TO LEAVE. WHEELCHAIR PROVIDED AND TAMPER RESISTANT TAPE PLACED OVER IV. GIRLFRIEND ESCORTED PT. VIA WHEELCHAIR OFF THE UNIT. INSTRUCTED PT. TO PLEASE RETURN TO THE ROOM WITHIN AN 1/2 HOUR FOR CHECK OF VS AND SCHEDULED MEDS. PT. VERBALIZED UNDERSTANDING.
--- NOTE | 2019-07-15 03:34 | NUR ---
PT. RETURNED TO ROOM. TAMPER TAPE INTACT. SITTING UP IN BED WATCHING TV, NO APPARENT DISTRESS NOTED. CALL LIGHT WITHIN REACH AND SIDE RAILS UP X2. SIGNIFICANT OTHER GONE FOR THE NIGHT. WILL CONT TO MONITOR.
--- NOTE | 2019-07-15 04:35 | NUR ---
SHIFT SUMMARY- NO ACUTE CHANGES OVERNIGHT. PT. SLEPT ON/OFF T/O NIGHT. STILL HAVING LOTS OF PAIN TO LLE. DILAUDID 2MG GIVEN Q2HRS PRN, TOLERATED WELL. SBA TO BATHROOM. CALL LIGHT WITIN REACH AND SIDE RAILS UP X2. WILL CONT TO MONITOR.
[2019-07-15 05:28] LABS: BASOPHILS ABSOLUTE AUTO 0.12 K/mm3 (0.00-0.23); BASOPHILS PERCENT AUTO 1 % (0-2); EOSINOPHILS ABSOLUTE AUTO 0.21 K/mm3 (0.00-0.68); EOSINOPHILS PERCENT AUTO 3 % (0-6); Hemoglobin 11.6 g/dL (13.5-17.5); IMMATURE GRAN ABSOLUTE AUTO 0.08 K/mm3 (0.00-0.10); IMMATURE GRAN PERCENT AUTO 1 % (0-1); LYMPHOCYTES PERCENT AUTO 20 % (21-46); MONOCYTES ABSOLUTE AUTO 0.99 K/mm3 (0.16-1.47); MONOCYTES PERCENT AUTO 12 % (4-13); Mean Corpuscular HGB 29.3 pg (26.0-34.0); Mean Corpuscular HGB Conc 30.5 g/dL (31.5-36.5); Mean Platelet Volume 9.5 fL (9.1-12.4); NEUTROPHILS ABSOLUTE AUTO 5.42 K/mm3 (1.96-9.15); NEUTROPHILS PERCENT AUTO 64 % (41-73); Platelet Count 684 K/mm3 (150-400); RDW Coefficient Variation 13.9 % (11.7-14.2); RDW Standard Deviation 49.5 fL (35.1-46.3); Red Blood Cell Count 3.96 M/mm3 (4.30-5.90); White Blood Cell Count 8.52 K/mm3 (4.00-11.30)
[2019-07-15 05:32] LABS: Mean Corpuscular Volume 96 fL (80-100)
[2019-07-15 05:50] LABS: Magnesium, Blood 2.3 mg/dL (1.6-2.4)
[2019-07-15 05:59] LABS: Alanine Aminotransfer (ALT/SGP 19 U/L (12-78); Albumin, Blood 2.5 g/dL (3.4-5.0); Albumin/Globulin Ratio 0.5 (0.8-1.8); Alk Phos 93 U/L (50-136); Anion Gap 4 mmol/L (6-16); Aspartate Aminotrans (AST/SGOT 16 U/L (12-37); Bilirubin, Total 0.1 mg/dL (0.1-1.0); Blood Urea Nitrogen 24 mg/dL (8-24); Bun/Creatinine Ratio 28.3 (12.0-20.0); CO2, Blood 30 mmol/L (21-32); Calcium, Blood 8.6 mg/dL (8.5-10.1); Chloride, Blood 106 mmol/L (98-108); Creatinine, Blood 0.85 mg/dL (0.60-1.20); Globulin, Blood 4.7 g/dL (2.2-4.0); Glomerular Filtration Rate >60 (60-); Glucose, Blood 92 mg/dL (70-99); Potassium, Blood 4.7 mmol/L (3.5-5.5); Sodium, Blood 140 mmol/L (136-145); Total Protein, Blood 7.2 g/dL (6.4-8.2)
--- NOTE | 2019-07-15 11:26 | NUR ---
Patient is outside when I go to his room so I go to the smoking area in the [place] parking lot and find patient there and he is smoking. We talk about his medical issues and about his frustrations with trying to be more focused on healthier living. I push patient in his wheel chair back to his room. Patient proceeds to ask questions of a spiritual issue but also other questions of a more practical nature. I listen empathically and provide pastoral automobile club travel counselor, companionship and prayer. Patient responds well and voices appreciation for the visit.
--- NOTE | 2019-07-15 18:46 | NUR ---
PT. JUST CAME BACK FROM OUTSIDE SMOKING PUSHING A WHEELCHAITR. CHANGED HIS DILAUDID TO MSIR. NO CHANGE IN LLE.
--- NOTE | 2019-07-16 04:07 | NUR ---
NOC SHIFT SUMMARY PT IS COOPERATIVE WITH CARE. HE IS ADMITTED FOR CELLULITIS OF LEFT LEG. HE IS AAOX4, RESP EVEN AND UNLABORED, MOVES AROUND IN BED WELL. HE HAS BEEN TREATED FOR PAIN PER EMAR. HE WAS SLEEPING EARLY THIS EVENING AND I HAD TO WAKE HIM FOR EVENING MED PASS. AFTER MEDS GIVEN HE FELL BACK TO SLEEP AND HAS SLEPT SOUNDLY THIS NIGHT. AUDIBLE SNORING IS HEARD COMING FROM THE ROOM. HE APPEARS IN NO ACUTE DISTRESS. WILL CONTINUE TO MONITOR.
--- NOTE | 2019-07-16 06:23 | NUR ---
POWERGLIDE FLUSHES WELL BUT DOES NOT DRAW BLOOD. PT ALLOWED LAB GIRL TO ATTEMPT TO DRAW BLOOD ONCE. SHE WAS UNSUCCESFUL. PT REFUSED FURTHER ATTEMPTS.
[2019-07-16 11:52] LABS: BASOPHILS ABSOLUTE AUTO 0.11 K/mm3 (0.00-0.23); BASOPHILS PERCENT AUTO 1 % (0-2); EOSINOPHILS ABSOLUTE AUTO 0.17 K/mm3 (0.00-0.68); EOSINOPHILS PERCENT AUTO 2 % (0-6); Hematocrit 38.6 % (37.0-53.0); IMMATURE GRAN ABSOLUTE AUTO 0.07 K/mm3 (0.00-0.10); IMMATURE GRAN PERCENT AUTO 1 % (0-1); LYMPHOCYTES PERCENT AUTO 18 % (21-46); MONOCYTES ABSOLUTE AUTO 1.37 K/mm3 (0.16-1.47); MONOCYTES PERCENT AUTO 13 % (4-13); Mean Corpuscular HGB 29.3 pg (26.0-34.0); Mean Corpuscular HGB Conc 31.1 g/dL (31.5-36.5); Mean Corpuscular Volume 94 fL (80-100); Mean Platelet Volume 9.4 fL (9.1-12.4); NEUTROPHILS ABSOLUTE AUTO 6.88 K/mm3 (1.96-9.15); NEUTROPHILS PERCENT AUTO 66 % (41-73); Platelet Count 637 K/mm3 (150-400); RDW Coefficient Variation 13.8 % (11.7-14.2); RDW Standard Deviation 47.8 fL (35.1-46.3)
[2019-07-16 12:14] LABS: Alanine Aminotransfer (ALT/SGP 17 U/L (12-78); Albumin, Blood 2.6 g/dL (3.4-5.0); Albumin/Globulin Ratio 0.5 (0.8-1.8); Alk Phos 98 U/L (50-136); Anion Gap 5 mmol/L (6-16); Aspartate Aminotrans (AST/SGOT 23 U/L (12-37); Bilirubin, Total 0.3 mg/dL (0.1-1.0); Blood Urea Nitrogen 26 mg/dL (8-24); Bun/Creatinine Ratio 32.6 (12.0-20.0); CO2, Blood 29 mmol/L (21-32); Calcium, Blood 8.5 mg/dL (8.5-10.1); Chloride, Blood 104 mmol/L (98-108); Globulin, Blood 4.8 g/dL (2.2-4.0); Glomerular Filtration Rate >60 (60-); Glucose, Blood 81 mg/dL (70-99); Potassium, Blood 4.2 mmol/L (3.5-5.5); Sodium, Blood 138 mmol/L (136-145); Total Protein, Blood 7.4 g/dL (6.4-8.2)
--- NOTE | 2019-07-16 12:41 | NUR ---
CALLED ABOUT PT PAIN. PT REQUESTED TO HAVE DR. LICEA CALLED ABOUT PAIN LEVEL. PT STATES HIS PAIN IS NOT MANAGED & IS REQUESTING IV PAIN MEDS. DR. LICEA CALLED & NOTIFIED. DR. LICEA STATES THAT SHE WILL SEE PT NEXT & DISCUSS IT WITH PT.
--- NOTE | 2019-07-16 13:59 | NUR ---
DR. LICEA CALLED ABOUT PT PAIN. PT STATES PAIN OF 8/10 AFTER IV MORPHINE 4MG GIVEN. DR. LICEA ORDERED TO INCREASE FREQUENCY FROM Q4 TO Q2. WILL MEDICATE PT ALLOWED. WILL CONTINUE TO MONITOR.
--- NOTE | 2019-07-16 14:54 | NUR ---
Patient is sitting up in bed and alert. Patient states that he heard I played guitar and asked if I could play guitar for him. I got my guitar and played 3 songs on the guitar and then he asked me if I knew any Shon Aguirre I said that I did not but I write songs and I could play and sing one of those. I told the story behind a song I wrote and then played that song and patient got teary eyed and said that it really spoke to him. I will continue to remain available to patient and family.
--- NOTE | 2019-07-16 16:34 | NUR ---
PT PAIN NOT RELIEVED PT CONTIUES TO C/O NO RELIEF FROM PAIN MEDS. DR. LICEA CALLED & INFORMED ON THIS PER PT REQUEST. INCREASED FREQUENCY PF IV MORPHINE TO Q1H PRN. WILL CONTINUE TO MONITOR.
--- NOTE | 2019-07-16 17:05 | NUR ---
PT C/O ITCHING. PT C/O ITCHING FROM MORPHINE. DR. LICEA NOTIFIED. MORPHINE DC'ED. DILADID ORDERED FOR PAIN RELIEF. OT BENADRYL ORDERED.
--- NOTE | 2019-07-16 18:16 | NUR ---
SHIFT SUMMARY PT MEDICATED WITH BOTH BENADRYL & DILADID. PT RESTING IN BED AT THIS TIME AFTER GOING OUTSIDE TO SMOKE. SEE PREVIOUS NOTES ABOUT PAIN MANAGEMENT. NO OTHER CHANGES IN ASSESSMENT AT THIS TIME. VSS. WILL CONTINUE TO MONITOR UNTIL TURNOVER IS COMPLETE.
--- NOTE | 2019-07-16 23:58 | NUR ---
PT SLEEPING UPON ENTERING ROOM, AUDIBLE SNORING. AWOKE TO VOICE. HE REQUESTED DILAUDED WELL THE TORADOL. GAVE 1MG DILAUDED IV. WILL CONTINUE TO MONITOR.
--- NOTE | 2019-07-17 03:35 | NUR ---
NOC SHIFT SUMMARY PT STARTED THE EVENING SITTING IN BED WITH A WOMAN HE STATES IS HIS SIGNIFICANT OTHER. HE HAS SPENT MOST OF THE NIGHT IN HIS ROOM THOUGH HE DID GO OUT TWICE TO SMOKE. HAS BEEN MEDICATED FOR PAIN PER EMAR. PT FALLS TO SLEEP READILY THROUGH THE NIGHT BUT AWAKENS TO VOICE. SHORTLY AFTER I STARTED HIS VANCO PT STATED HE WANTED TO GO OUTSIDE TO SMOKE. I EXPLAINED AND EMPHASIZED THE IMPORTANCE OF GETTING THE ANTIBIOTIC AND HE HAS AGREED TO WAIT FOR IT TO FINISH. VSS. PT APPEARS IN NO ACUTE DISTRESS. WILL CONTINUE TO MONITOR.
[2019-07-17 13:48] LABS: Vancomycin, Trough 16.2 ug/mL (5.0-10.0)
--- NOTE | 2019-07-17 15:31 | NUR ---
Patient is sitting on the side of his bed and alert. Provide pastoral clinical counselor, companionship and prayer. Patient responds well and voices appreciation for the visit.
--- NOTE | 2019-07-17 17:29 | NUR ---
SHIFT SUMMARY PT REQUIRING PAIN MEDICATION OFTEN ALLOWED. PT PAIN STABLIZED AT AN 8 BEFORE & AFTER PAIN MEDS. PT GETTING 1MG DILADID EVERY 2 HOURS. PT EDUCATED ON PLAN OF CARE & IV ANTIBIOTICS. PT AMBULATES DOWNSTAIRS TO SMOKE THROUGHOUT THE DAY. NO CHANGES IN ASSESSMENT AT THIS TIME. VSS. WILL CONTINUE TO MONITOR UNTIL TURNOVER IS COMPLETE.
--- NOTE | 2019-07-18 05:29 | NUR ---
SHIFT SUMMARY PT SLEPT OFF AND ON THROUGHOUT THE NIGHT. WHEN AWAKE PT REPORTS PAIN NEVER LESS THAN 7-8/10. MEDICATED PER EMAR FOR PAIN. LLE RED AND SWOLLEN. PT AMBULATES WELL ON EXTREMITY. AMBULATED OUTSIDE X 1. VSS. NO ACUTE CHANGES THIS SHIFT. WILL CONTINUE TO MONITOR.
[2019-07-18 05:35] LABS: Anion Gap 3 mmol/L (6-16); Blood Urea Nitrogen 27 mg/dL (8-24); Bun/Creatinine Ratio 30.7 (12.0-20.0); CO2, Blood 29 mmol/L (21-32); Calcium, Blood 8.6 mg/dL (8.5-10.1); Chloride, Blood 104 mmol/L (98-108); Creatinine, Blood 0.88 mg/dL (0.60-1.20); Glomerular Filtration Rate >60 (60-); Glucose, Blood 94 mg/dL (70-99); Potassium, Blood 4.8 mmol/L (3.5-5.5); Sodium, Blood 136 mmol/L (136-145)
--- NOTE | 2019-07-18 18:00 | NUR ---
SHIFT SUMMARY: PT IS A/O X 4 AND HAS ONGOING C/O PAIN. PT STATES THE MSIR WAS INEFFECTIVE AND DR LICEA WAS NOTIFIED AND NEW ORDER WAS GIVEN FOR PERCOCET. PT RECEIVED IV ABO WITH NO ISSUES OBSERVED. LLE REMAINS RED, SWOLLEN AND WARM AND PT WAS ENCOURAGED TO ELEVATE HIS LEG WHILE IN BED. PT SIGNIFICANT OTHER HAS BEEN AT BEDSIDE MOST OF THE DAY AND THEY ARE BOTH PLEASANT AND COOPERATIVE. PT CALLS APPROPRIATELY FOR HELP WHEN NEEDED.
--- NOTE | 2019-07-19 04:07 | NUR ---
SUMMARY: PT A/OX4, INDEPENDENT IN ROOM AND PLEASANT/COOPERATIVE. LLE CELLULITIS REMAINS W/IN MARKED REGION BUT SWELLING/REDNESS PERSISTS AND L.LEG ELEVATED WHILE IN BED. DILAUDID IV AND PERCOCET PO PRN RECIEVED REGULARY T/O NOCTE FOR TOLERABLE CONTROL OF LEG PAIN WHICH NEVER GETS BETTER THEN -05/27. IV ABX RECIEVED THEN SL. PT'S S.O. WAS AT BEDSIDE PLAYING GAMES MUCH OF NIGHT AND HE WENT OUTSIDE TO SMOKE X1. NO ACUTE CHANGES, VSS/AFEBRILE. WCTM AND REPORT TO DAY RN.
--- NOTE | 2019-07-19 10:55 | NUR ---
PT HAS DECIDED TO LEAVE [facility] AMA. PT STATES IF HE IS NOT GOING TO GET IV PAIN TRES WHEN HE NEEDS/WANTS THEM HE CAN DO WHAT HES DOING HERE AT HOME AND BE MORE COMFORTABLE. AMA FORM WAS REVIEWED WITH PT ALONG WITH RISKS VS BENEFITS. POWERGLIDE WAS REMOVED AND WAS WNL. PT TOOK ALL BELONGINGS WITH HIM. PT WAS ENCOURAGED TO F/U WITH PCP.
== END 2019-07-19 11:00 | disposition left against medical advice (07) | DRG 603 ==
LOC: ER 10:16 → MEDS 13:18
PROVIDERS: Emergency Medicine; ADMIT Internal Medicine
DX: L03.116 Cellulitis of left lower limb (principal); F17.200 Nicotine dependence, unspecified, uncomplicated; E66.9 Obesity, unspecified; Z68.39 Body mass index [BMI] 39.0-39.9, adult; I89.0 Lymphedema, not elsewhere classified
CPT/HCPCS: 36415; 80048; 80053; 80202; 83605; 83735; 83880; 85025; 85379; 87040; 93306; 93971; 96365; 96366; 96375; 99284-25; A9270; J0696; J1170; J1200; J1650; J1885; J1940; J2270; J2405; J3370; J7050; Q0163

== ENCOUNTER 2019-10-23 00:42 | Emergency (ER) | payer OTHER ==
[~2019-10-23] VITALS: Ht 185.4 cm; Wt 127.0 kg
[~2019-10-23 00:42] MED LIST changes: +FURO20 PO; +K-Dur20 MEQ PO; +Potassium Chlo20 ME1 PO; +SPIR50 PO
[2019-10-23] MEDS ORDERED: Naprosyn500 MG PO (03:51)
== END 2019-10-23 04:25 | disposition home or self-care (01) ==
LOC: ER 00:42
DX: N50.812 Left testicular pain (principal); Z88.5 Allergy status to narcotic agent; Z79.899 Other long term (current) drug therapy
CPT/HCPCS: 76870; 99283

== ENCOUNTER 2019-12-07 11:29 | Emergency (ER) | payer OTHER ==
[~2019-12-07] VITALS: Ht 182.9 cm; Wt 122.5 kg
[~2019-12-07 11:29] MED LIST changes: +Naprosyn500 MG PO
[2019-12-08 04:07] LABS: HCV ANTIBODY >11.0 (0.0-0.9); HIV SCREEN 4TH GENERATION WRFX Non Reactive (Non Reactive)
== END 2019-12-07 13:20 | disposition home or self-care (01) ==
LOC: ER 11:29
PROVIDERS: Physician Assistant
DX: Z77.21 Contact with and (suspected) exposure to potentially hazardous body fluids (principal); Z88.5 Allergy status to narcotic agent; Z79.899 Other long term (current) drug therapy; Z87.891 Personal history of nicotine dependence
CPT/HCPCS: 36415; 84460; 86317; 86803; 87389; 99283

== ENCOUNTER 2019-12-18 03:40 | Emergency (ER) | payer OTHER | END 2019-12-18 04:55 | disposition left against medical advice (07) | LOC: ER 03:40 | DX: Z53.21 Procedure and treatment not carried out due to patient leaving prior to being seen by health care provider (principal) ==

== ENCOUNTER 2020-11-27 15:29 | Emergency (ER) | payer OTHER ==
[~2020-11-27] VITALS: Ht 185.4 cm; Wt 127.0 kg
[2020-11-27] MEDS ORDERED: CYCL10 PO (17:18)
== END 2020-11-27 17:26 | disposition home or self-care (01) ==
LOC: ER 15:29
DX: M54.2 Cervicalgia (principal); M25.531 Pain in right wrist; Z79.899 Other long term (current) drug therapy; Z88.5 Allergy status to narcotic agent; V49.40XA Driver injured in collision with unspecified motor vehicles in traffic accident, initial encounter; Y92.410 Unspecified street and highway as the place of occurrence of the external cause
CPT/HCPCS: 72125; 73110; 96372; 99284-25; A9270; J1885

== ENCOUNTER 2021-11-19 18:09 | Emergency (ER) | payer OTHER ==
[~2021-11-19] VITALS: Ht 185.4 cm; Wt 145.2 kg
[~2021-11-19 18:09] MED LIST changes: +CYCL10 PO
[2021-11-19 19:34] LABS: BASOPHILS ABSOLUTE AUTO 0.08 K/mm3 (0.00-0.23); BASOPHILS PERCENT AUTO 1 % (0-2); EOSINOPHILS ABSOLUTE AUTO 0.25 K/mm3 (0.00-0.68); EOSINOPHILS PERCENT AUTO 3 % (0-6); Hematocrit 43.7 % (37.0-53.0); Hemoglobin 14.2 g/dL (13.5-17.5); IMMATURE GRAN ABSOLUTE AUTO 0.03 K/mm3 (0.00-0.10); IMMATURE GRAN PERCENT AUTO 0 % (0-1); LYMPHOCYTES ABSOLUTE AUTO 1.56 K/mm3 (0.84-5.20); LYMPHOCYTES PERCENT AUTO 20 % (21-46); MONOCYTES ABSOLUTE AUTO 0.85 K/mm3 (0.16-1.47); MONOCYTES PERCENT AUTO 11 % (4-13); Mean Corpuscular HGB 31.5 pg (26.0-34.0); Mean Corpuscular HGB Conc 32.5 g/dL (31.5-36.5); Mean Corpuscular Volume 97 fL (80-100); Mean Platelet Volume 10.3 fL (9.1-12.4); NEUTROPHILS ABSOLUTE AUTO 5.14 K/mm3 (1.96-9.15); NEUTROPHILS PERCENT AUTO 65 % (41-73); Platelet Count 257 K/mm3 (150-400); RDW Coefficient Variation 13.3 % (11.7-14.2); Red Blood Cell Count 4.51 M/mm3 (4.30-5.90); White Blood Cell Count 7.91 K/mm3 (4.00-11.30)
[2021-11-19 20:04] LABS: Alanine Aminotransfer (ALT/SGP 28 U/L (12-78); Albumin, Blood 3.5 g/dL (3.4-5.0); Alk Phos 92 U/L (50-136); Anion Gap 6 mmol/L (6-16); Aspartate Aminotrans (AST/SGOT 29 U/L (12-37); Bilirubin, Total 0.2 mg/dL (0.1-1.0); Blood Urea Nitrogen 17 mg/dL (8-24); Bun/Creatinine Ratio 20.6 (12.0-20.0); CO2, Blood 25 mmol/L (21-32); Calcium, Blood 8.8 mg/dL (8.5-10.1); Chloride, Blood 108 mmol/L (98-108); Creatinine, Blood 0.83 mg/dL (0.60-1.20); Globulin, Blood 3.4 g/dL (2.2-4.0); Glomerular Filtration Rate >60 (60-); Glucose, Blood 103 mg/dL (70-99); Potassium, Blood 4.3 mmol/L (3.5-5.5); Sodium, Blood 139 mmol/L (136-145); Total Protein, Blood 6.9 g/dL (6.4-8.2)
[2021-11-19] MEDS ORDERED: BUME2 PO (21:51)
== END 2021-11-19 22:10 | disposition home or self-care (01) ==
LOC: ER 18:09
PROVIDERS: Physician Assistant
DX: R60.0 Localized edema (principal); Z88.5 Allergy status to narcotic agent; Z79.899 Other long term (current) drug therapy; F17.210 Nicotine dependence, cigarettes, uncomplicated
CPT/HCPCS: 71045; 80053; 83880; 85025; 93005; 93010; 96374; 96375; 99284-25; J1885; J1940; J2270

== ENCOUNTER 2021-11-26 16:56 | Emergency (ER) | payer OTHER ==
[~2021-11-26] VITALS: Ht 185.4 cm; Wt 161.9 kg
[~2021-11-26 16:56] MED LIST changes: +BUME2 PO
[2021-11-26] MEDS ORDERED: Prinivil10 MG PO (17:45)
[2021-11-26 18:14] LABS: BASOPHILS ABSOLUTE AUTO 0.05 K/mm3 (0.00-0.23); BASOPHILS PERCENT AUTO 1 % (0-2); EOSINOPHILS ABSOLUTE AUTO 0.13 K/mm3 (0.00-0.68); EOSINOPHILS PERCENT AUTO 2 % (0-6); Hemoglobin 13.6 g/dL (13.5-17.5); IMMATURE GRAN ABSOLUTE AUTO 0.03 K/mm3 (0.00-0.10); IMMATURE GRAN PERCENT AUTO 1 % (0-1); LYMPHOCYTES ABSOLUTE AUTO 1.25 K/mm3 (0.84-5.20); LYMPHOCYTES PERCENT AUTO 20 % (21-46); MONOCYTES ABSOLUTE AUTO 0.79 K/mm3 (0.16-1.47); MONOCYTES PERCENT AUTO 13 % (4-13); Mean Corpuscular HGB 31.6 pg (26.0-34.0); Mean Corpuscular HGB Conc 32.4 g/dL (31.5-36.5); Mean Corpuscular Volume 97 fL (80-100); Mean Platelet Volume 10.8 fL (9.1-12.4); NEUTROPHILS ABSOLUTE AUTO 3.88 K/mm3 (1.96-9.15); NEUTROPHILS PERCENT AUTO 63 % (41-73); Platelet Count 236 K/mm3 (150-400); RDW Coefficient Variation 13.1 % (11.7-14.2); RDW Standard Deviation 47.1 fL (35.1-46.3); Red Blood Cell Count 4.31 M/mm3 (4.30-5.90); White Blood Cell Count 6.13 K/mm3 (4.00-11.30)
[2021-11-26 18:25] LABS: Alanine Aminotransfer (ALT/SGP 23 U/L (12-78); Albumin, Blood 3.5 g/dL (3.4-5.0); Alk Phos 80 U/L (50-136); Anion Gap 4 mmol/L (6-16); Aspartate Aminotrans (AST/SGOT 28 U/L (12-37); Bilirubin, Total 0.3 mg/dL (0.1-1.0); Blood Urea Nitrogen 20 mg/dL (8-24); Bun/Creatinine Ratio 17.4 (12.0-20.0); CO2, Blood 34 mmol/L (21-32); Calcium, Blood 8.6 mg/dL (8.5-10.1); Chloride, Blood 98 mmol/L (98-108); Creatinine, Blood 1.15 mg/dL (0.60-1.20); Globulin, Blood 3.5 g/dL (2.2-4.0); Glomerular Filtration Rate >60 (60-); Glucose, Blood 101 mg/dL (70-99); Potassium, Blood 3.8 mmol/L (3.5-5.5); Sodium, Blood 136 mmol/L (136-145); Troponin I <0.015 ng/mL (0.000-0.040)
[2021-11-26] MEDS ORDERED: Prednisone50 MG PO (20:30)
== END 2021-11-26 20:51 | disposition home or self-care (01) ==
LOC: ER 16:56
PROVIDERS: Student in an Organized Health Care Education/Training Program
DX: J44.1 Chronic obstructive pulmonary disease with (acute) exacerbation (principal); I89.0 Lymphedema, not elsewhere classified; I10 Essential (primary) hypertension; Z88.5 Allergy status to narcotic agent; Z79.899 Other long term (current) drug therapy
CPT/HCPCS: 36415; 71045; 80053; 84484; 85025; 93005; 93010; 94644; A9270; J7512

== ENCOUNTER → 2021-12-04 | Outpatient (CLI) | payer OTHER ==
[~2021-12-04] MED LIST changes: +Prednisone50 MG PO; +Prinivil10 MG PO
[2021-12-06 04:10] LABS: CALCIUM, SERUM 8.8 mg/dL (8.7-10.2); CREATININE, SERUM 0.95 mg/dL (0.76-1.27); POTASSIUM, SERUM 5.1 mmol/L (3.5-5.2)
== END ==
LOC: LAB SHORT 11:40
PROVIDERS: Family Medicine
DX: R60.0 Localized edema (principal)
CPT/HCPCS: 80048

== ENCOUNTER → 2021-12-14 | Outpatient (CLI) | payer OTHER ==
[2021-12-14 14:23] LABS: BASOPHILS ABSOLUTE AUTO 0.08 K/mm3 (0.00-0.23); BASOPHILS PERCENT AUTO 1 % (0-2); EOSINOPHILS ABSOLUTE AUTO 0.23 K/mm3 (0.00-0.68); EOSINOPHILS PERCENT AUTO 3 % (0-6); Hematocrit 45.2 % (37.0-53.0); Hemoglobin 14.9 g/dL (13.5-17.5); IMMATURE GRAN ABSOLUTE AUTO 0.03 K/mm3 (0.00-0.10); IMMATURE GRAN PERCENT AUTO 0 % (0-1); LYMPHOCYTES ABSOLUTE AUTO 2.24 K/mm3 (0.84-5.20); LYMPHOCYTES PERCENT AUTO 27 % (21-46); MONOCYTES PERCENT AUTO 12 % (4-13); Mean Corpuscular HGB 31.8 pg (26.0-34.0); Mean Corpuscular Volume 97 fL (80-100); Mean Platelet Volume 10.4 fL (9.1-12.4); NEUTROPHILS ABSOLUTE AUTO 4.69 K/mm3 (1.96-9.15); NEUTROPHILS PERCENT AUTO 57 % (41-73); Platelet Count 263 K/mm3 (150-400); RDW Coefficient Variation 13.2 % (11.7-14.2); RDW Standard Deviation 47.2 fL (35.1-46.3); Red Blood Cell Count 4.68 M/mm3 (4.30-5.90); White Blood Cell Count 8.27 K/mm3 (4.00-11.30)
[2021-12-14 14:36] LABS: Anion Gap 8 mmol/L (6-16); Blood Urea Nitrogen 26 mg/dL (8-24); Bun/Creatinine Ratio 24.8 (12.0-20.0); CO2, Blood 27 mmol/L (21-32); Calcium, Blood 9.2 mg/dL (8.5-10.1); Chloride, Blood 101 mmol/L (98-108); Creatinine, Blood 1.05 mg/dL (0.60-1.20); Glomerular Filtration Rate >60 (60-); Glucose, Blood 100 mg/dL (70-99); Potassium, Blood 4.5 mmol/L (3.5-5.5); Sodium, Blood 136 mmol/L (136-145)
[2021-12-14 14:37] LABS: Troponin I <0.017 ng/mL (0.000-0.040)
== END | disposition home or self-care (01) ==
LOC: LAB 14:19 → LAB SHORT 14:19
PROVIDERS: Physician Assistant Surgical
DX: R06.00 Dyspnea, unspecified (principal)
CPT/HCPCS: 80048; 83880; 84484; 85025

== ENCOUNTER 2022-09-30 11:15 | Inpatient (IN) | payer OTHER ==
[~2022-09-30] VITALS: Ht 185.4 cm; Wt 165.5 kg
[2022-09-30] MEDS ORDERED: POTA8 (11:22)
[2022-09-30 12:20] LABS: Hematocrit 43.2 % (37.0-53.0); Hemoglobin 14.6 g/dL (13.5-17.5); Mean Corpuscular HGB 31.7 pg (26.0-34.0); Mean Corpuscular HGB Conc 33.8 g/dL (31.5-36.5); Mean Corpuscular Volume 94 fL (80-100); Mean Platelet Volume 10.9 fL (9.1-12.4); Platelet Count 187 K/mm3 (150-400); RDW Coefficient Variation 14.1 % (11.7-14.2); RDW Standard Deviation 48.7 fL (35.1-46.3); White Blood Cell Count 11.41 K/mm3 (4.00-11.30)
[2022-09-30 12:41] LABS: BAND PERCENT MAN 49 % (0-8); BASOPHILS PERCENT MAN 0 % (0-2); EOSINOPHILS PERCENT MAN 0 % (0-6); LYMPHOCYTES ABSOLUTE MAN 0.34 K/mm3 (0.84-5.20); LYMPHOCYTES PERCENT MAN 3 % (21-46); METAMYELOCYTE ABSOLUTE MAN 0.22 K/mm3 (0.00-0.00); METAMYELOCYTE PERCENT MAN 2 % (0-0); MONOCYTES ABSOLUTE MAN 0.79 K/mm3 (0.16-1.47); MONOCYTES PERCENT MAN 7 % (4-13); NEUTROPHILS ABSOLUTE MAN 10.04 K/mm3 (1.96-9.15); SEG NEUTROPHILS PERCENT MAN 39 % (41-73); TOTAL CELLS COUNTED 100
[2022-09-30 12:42] LABS: Albumin, Blood 2.7 g/dL (3.4-5.0); Albumin/Globulin Ratio 0.6 (0.8-1.8); Bilirubin, Total 0.9 mg/dL (0.1-1.0); Bun/Creatinine Ratio 16.7 (12.0-20.0); Calcium, Blood 8.4 mg/dL (8.5-10.1); Creatinine, Blood 2.28 mg/dL (0.60-1.20); Globulin, Blood 4.6 g/dL (2.2-4.0); Potassium, Blood 5.2 mmol/L (3.5-5.5); Total Protein, Blood 7.3 g/dL (6.4-8.2)
[2022-09-30] MEDS ORDERED: FURO20 PO (15:13)
[2022-09-30] MEDS ORDERED: SPIR25 PO (15:14)
[2022-09-30 15:54] LABS: Source, Urine Clean Catch
[2022-09-30 15:59] LABS: Bilirubin, Urine Neg (Neg); Blood, Urine Neg (Neg); Color, Urine Yellow (P-Yellow); Glucose Qualitative, Urine Neg (Neg); Ketones, Urine Neg (Neg); Leukocyte Esterase, Urine Neg (Neg); Nitrite, Urine Neg (Neg); Protein, Urine Neg (Neg); Specific Gravity, Urine 1.015 (1.003-1.022); Urobilinogen, Urine NORM (Normal)
[2022-09-30 16:08] LABS: Appearance, Urine Hazy (Clear)
[2022-09-30 16:09] LABS: Amorphous Light (0-Heavy); Bacteria Many /hpf; Mucus Light (0-Heavy); Red Blood Cells, Urine 0-2 /hpf (0-2); Squamous Epithelial Cells Rare /hpf (Few); Transitional Epithelial Cells Rare /hpf (0-Rare); White Blood Cells, Urine 0-2 /hpf (0-5)
--- NOTE | 2022-09-30 19:19 | NUR ---
ADMIT PATIENT NEW ADMIT TO UNIT FROM ER AT 1800. R LEG CELLULITIS AND SEPSIS. R LEG NOTED TO BE SWOLLEN AND RED FROM TOES TO INNER THIGH/GROIN. BASELINE LYMPHEDEMA TO BILAT LE. PATIENT ALERT AND ORIENTED, ABLE TO SBA TRANSFER FROM [facility] TO BED IN ROOM. POWERGLIDE IN RU. VS SHOWED ELEV BP 140 SYSTOLIC, TACHY HR 113, O2 92% ON RA. NS RUNNING AT 200/HR. ANCEF GIVEN. REPORT GIVEN TO LICENSED NUCLEAR CONTROL ROOM OPERATOR RN.
[2022-10-01 05:34] LABS: Hematocrit 39.9 % (37.0-53.0); Mean Corpuscular HGB 31.3 pg (26.0-34.0); Mean Corpuscular HGB Conc 32.6 g/dL (31.5-36.5); Mean Corpuscular Volume 96 fL (80-100); Mean Platelet Volume 11.8 fL (9.1-12.4); Platelet Count 182 K/mm3 (150-400); RDW Coefficient Variation 14.6 % (11.7-14.2); RDW Standard Deviation 51.1 fL (35.1-46.3); Red Blood Cell Count 4.16 M/mm3 (4.30-5.90); White Blood Cell Count 12.46 K/mm3 (4.00-11.30)
[2022-10-01 06:02] LABS: Bun/Creatinine Ratio 21.1 (12.0-20.0); Calcium, Blood 7.6 mg/dL (8.5-10.1); Creatinine, Blood 2.28 mg/dL (0.60-1.20); Magnesium, Blood 1.5 mg/dL (1.6-2.4); Potassium, Blood 4.9 mmol/L (3.5-5.5)
[2022-10-01 07:11] LABS: BAND PERCENT MAN 46 % (0-8); BASOPHILS PERCENT MAN 0 % (0-2); EOSINOPHILS PERCENT MAN 0 % (0-6); LYMPHOCYTES ABSOLUTE MAN 0.24 K/mm3 (0.84-5.20); LYMPHOCYTES PERCENT MAN 2 % (21-46); MONOCYTES ABSOLUTE MAN 0.12 K/mm3 (0.16-1.47); MONOCYTES PERCENT MAN 1 % (4-13); NEUTROPHILS ABSOLUTE MAN 12.08 K/mm3 (1.96-9.15); SEG NEUTROPHILS PERCENT MAN 51 % (41-73); TOTAL CELLS COUNTED 100
--- NOTE | 2022-10-01 07:50 | NUR ---
SHIFT SUMMARY; PT REMAINED TACHYCARDIC 105-115 THROUGHOUT THE NIGHT. AT THE BEGINNING OF THE SHIFT THE PT WAS SATING IN THE 80'S, THE PT IS NOW ON 5L NC AND IS SATING >92%. PT COMPLAINS OF PAIN IN BLE, BLE ARE VERY SWOLLEN. PT DOES HAVE LYMPHEDEMA WELL THE R LEG CURRENTLY HAS CELLULITIS. THE CELLULITIS DID NOT ADVANCE UP THE R LEG THROUGHOUT THE SHIFT BUT THE LEG DID TURN VERY BRIGHT RED, ALMOST PURPLE LIKE. PT COMPLAINS THAT HE FEELS LIKE HIS SKIN ON HIS R LEG IS SPLITTING OPEN. ADDITIONALLY THE PT COMPLAINS OF FELLING FLUID OVERLOADED. PT IS ON CONTINOUS NS AT 200ML/HR. PT WAS ABLE TO GET UP AND PIVOT TO THE BEDSIDE COMMODE. THE PT IS CURRENTLY IN THE RECLINER AT BEDSIDE SLEEPING, PT WAS ABLE TO GET SOME SLEEP AFTER RECIEVING DILAUDID FOR PAIN. [facility] CALL LIGHT IS WITHIN REACH.
--- NOTE | 2022-10-01 18:09 | NUR ---
PT IS A/OX4, PLEASANT AND COOPERATIVE. THE PT IS UP WITH MODERATE ASSIST. THE PT WAS IN THE RECLINER AT THE BEDSIDE FOR MOST OF THE DAY. PT SLEPT FOR MOST OF THE DAY. WHEN AWAKE THE PT REPORTED PAIN 10/10 IN THE RLE.PTS RLE IS TIGHLY SWOLLEN AND RED, HOT TO TOUCH. PTS CELLULITIS WAS OUTLINRD WITH MARKER AND HAS NOT INCREASED OUT OF THE JOSE LUIS SO FAT. PT WAS MEDICATED FOR PAIN T/O THE DAY. PT DECLINED TO WEAR HIS CPAP. CALL LIGHT IN REACH WILL CONTINUE TO MONITOR AND ASSESS FOR CHANGES
[2022-10-02 02:15] LABS: Hematocrit 36.6 % (37.0-53.0); Hemoglobin 12.3 g/dL (13.5-17.5); Mean Corpuscular HGB 31.6 pg (26.0-34.0); Mean Corpuscular HGB Conc 33.6 g/dL (31.5-36.5); Mean Corpuscular Volume 94 fL (80-100); Mean Platelet Volume 11.3 fL (9.1-12.4); Platelet Count 169 K/mm3 (150-400); RDW Coefficient Variation 14.7 % (11.7-14.2); RDW Standard Deviation 51.2 fL (35.1-46.3); Red Blood Cell Count 3.89 M/mm3 (4.30-5.90); White Blood Cell Count 18.53 K/mm3 (4.00-11.30)
[2022-10-02 02:33] LABS: Magnesium, Blood 2.1 mg/dL (1.6-2.4)
[2022-10-02 02:44] LABS: Albumin, Blood 1.9 g/dL (3.4-5.0); Anion Gap 9 mmol/L (6-16); Blood Urea Nitrogen 62 mg/dL (8-24); Bun/Creatinine Ratio 19.1 (12.0-20.0); CO2, Blood 23 mmol/L (21-32); Calcium, Blood 7.7 mg/dL (8.5-10.1); Chloride, Blood 98 mmol/L (98-108); Creatinine, Blood 3.25 mg/dL (0.60-1.20); Glomerular Filtration Rate 21 (60-); Glucose, Blood 96 mg/dL (70-99); Phosphorus, Blood 3.9 mg/dL (2.5-4.9); Potassium, Blood 4.9 mmol/L (3.5-5.5); Sodium, Blood 130 mmol/L (136-145); Vancomycin, Trough 26.2 ug/mL (5.0-10.0)
--- NOTE | 2022-10-02 05:54 | NUR ---
PRIMARY GOAL OF SHIFT WAS PAIN MANAGEMENT. DILAUDID 1 MG GIVEN Q2 HOURS. PATIENT OFTEN SLEPT PERIODICALLY AFTER DILAUDID ADMINISTRATION BUT PAIN SELDOM SUBSIDED ENTIRELY. PATIENT HAS BEEN GETTING NS @ 200 MLS/HOUR THROUGHOUT ENTIRETY OF SHIFT. OUTPUT HAS BEEN MINIMAL. PATIENT ATTEMPTED TO USE URINAL ONCE IN NIGHT BUT WAS UNABLE TO PRODUCE URINE. BLADDER SCAN SHOWED 218ML OF URINE IN BLADDER. LYMPHEDEMA REMAINING STABLE THROUGH SHIFT. PATIENT COOPERATIVE WITH COMMANDS AND PLEASANT. CALL LIGHT LEFT WITHIN REACH.
[2022-10-02 15:51] LABS: Vancomycin, Random 20.4 ug/mL
--- NOTE | 2022-10-02 16:36 | NUR ---
PT IS A/OX4, PLEASANT AND COOPERATIVE. THE PT IS UP WITH MODERATE ASSIST DUE TO GROSS SWELLING/CELLULITIS IN HIS RIGHT LE. THE PTS RIGHT LE IS RED AND WARM TO TOUCH THE PT HAS HAD HIS LE'S ELEVAYTED FOR MOST OF THE DAY. THE PT HAS BEEN DROWSY MOST OF THE OSMAR.PT HAS BEEN MEDICATED FOR PAIN T/O THE DAY. PT HAS DECLINED TO WEAR HIS CPAP WHILE ASLEEP. BOTH THIS RN AND THE RT HAS ENCOURAGED THE PT TO WEAR THE CPAP. PT IS ON CONTINUOS BIOX AND COMPLIES WITH WEARING OXYGEN. THE PT'S RIGHT LE BLISTERED AND STARTED WEEPING TODAY. CALL LIGHT IN REACH. WILL CONTINUE TO MONITOR AND ASSESS FOR CHANGES.
[2022-10-03 05:39] LABS: Hematocrit 38.8 % (37.0-53.0); Hemoglobin 12.7 g/dL (13.5-17.5); Mean Corpuscular HGB 30.9 pg (26.0-34.0); Mean Corpuscular HGB Conc 32.7 g/dL (31.5-36.5); Mean Corpuscular Volume 94 fL (80-100); Mean Platelet Volume 11.9 fL (9.1-12.4); Platelet Count 197 K/mm3 (150-400); RDW Coefficient Variation 15.3 % (11.7-14.2); RDW Standard Deviation 53.4 fL (35.1-46.3); Red Blood Cell Count 4.11 M/mm3 (4.30-5.90); White Blood Cell Count 29.37 K/mm3 (4.00-11.30)
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
[2022-10-03 06:19] LABS: Albumin, Blood 1.8 g/dL (3.4-5.0); Anion Gap 13 mmol/L (6-16); Blood Urea Nitrogen 89 mg/dL (8-24); CO2, Blood 18 mmol/L (21-32); Calcium, Blood 7.8 mg/dL (8.5-10.1); Chloride, Blood 97 mmol/L (98-108); Creatinine, Blood 5.24 mg/dL (0.60-1.20); Glomerular Filtration Rate 12 (60-); Glucose, Blood 85 mg/dL (70-99); Potassium, Blood 5.5 mmol/L (3.5-5.5); Sodium, Blood 128 mmol/L (136-145); Vancomycin, Random 19.4 ug/mL
[2022-10-03 06:20] LABS: Phosphorus, Blood 8.2 mg/dL (2.5-4.9)
--- NOTE | 2022-10-03 06:37 | NUR ---
CRITICAL PHOSPHORUS NOW 8.2 W/WORSENING KIDNEY FUNCTION IN PRESENCE OF ANURIA THIS SHIFT. BLADDER SCAN OF 330 MLS. MADE AWARE, PHOSLO GEL RX'D AND HE PLANS TO DISCUSS PROBABLE NEED FOR NEPHROLOGY CONSULT W/DAY ATTENDING PHYSICIAN.
[2022-10-03 09:29] LABS: Osmolality, Serum 303 mos/KG (275-300)
[2022-10-03 09:52] LABS: Source, Urine Clean Catch
[2022-10-03 09:57] LABS: Appearance, Urine Clear (Clear); Bilirubin, Urine Neg (Neg); Blood, Urine 4+ (Neg); Color, Urine Yellow (P-Yellow); Glucose Qualitative, Urine Neg (Neg); Ketones, Urine Neg (Neg); Leukocyte Esterase, Urine 1+ (Neg); Nitrite, Urine Neg (Neg); Protein, Urine 2+ (Neg); Urobilinogen, Urine NORM (Normal)
[2022-10-03 10:18] LABS: Bacteria Mod /hpf; Squamous Epithelial Cells Mod /hpf (Few)
[2022-10-03 10:32] LABS: C-REACTIVE PROTEIN, EXT RANGE >19.000 mg/dL (0.000-0.300)
[2022-10-03 10:54] LABS: Eosinophils-Raw #,Urine 0
--- NOTE | 2022-10-03 18:46 | NUR ---
PT IS A/OX3, PLEASANT AND COOPERATIVE. PT IS DROWSY AND AT TIME VERY FEARFULL, THE PT STATED SEVERAL TIMES TODAY THAT HE FELT THAT HE WAS GOING TO . PT TODAY HAS BEEN COMPLIANT WITH HIS CPAP WITH 4L/MIN O2 BLEED IN. WHILE AWAKE THE PT IS WITH 5L/MIN VIA NC O2 SAT'S > 92%. PT WAS MEDICATED FOR PAIN T/O THE DAY. THE PT BECAME VERY ANXIUOS AND FEARFULL THIS AFTERNOON WHEN FAMILY WAS PRESENT AND ATIVAN 1 MG WAS GIVEN. PT CALMED AND WAS ABLE TO REST. PTS OUTLINED CELLULITIS HAS WORSENED SLIGHTLY AND THE LEG IS WEEPING GROSS AMOUNTS OF FLUID. THE PTS RLE HAS BEEN ELEVATED T/O THE DAY ON PILLOWS. DR. WEEKS WITH NEPHROLOGY AND DR. LINDER FROM [facility] WAS IN TO SEE THE PT TODAY. A PRASAD CATHERTER WAS PLACED TODAY. CALL LIGHT IN REACH, WILL CONTINUE TO MONITOR AND ASSESS FOR CHANGES
[2022-10-04 06:06] LABS: Hemoglobin 12.2 g/dL (13.5-17.5); Mean Corpuscular HGB 31.6 pg (26.0-34.0); Mean Corpuscular HGB Conc 33.9 g/dL (31.5-36.5); Mean Corpuscular Volume 93 fL (80-100); Mean Platelet Volume 12.3 fL (9.1-12.4); NRBC ABSOLUTE 0.02 K/mm3 (0.00-0.02); NRBC Auto 0.1 /100 WBC (0.0-0.2); Platelet Count 244 K/mm3 (150-400); RDW Coefficient Variation 15.6 % (11.7-14.2); RDW Standard Deviation 53.4 fL (35.1-46.3); Red Blood Cell Count 3.86 M/mm3 (4.30-5.90); White Blood Cell Count 32.75 K/mm3 (4.00-11.30)
[2022-10-04 06:39] LABS: Albumin, Blood 1.6 g/dL (3.4-5.0); Anion Gap 17 mmol/L (6-16); Blood Urea Nitrogen 101 mg/dL (8-24); Bun/Creatinine Ratio 21.6 (12.0-20.0); CO2, Blood 16 mmol/L (21-32); Calcium, Blood 7.3 mg/dL (8.5-10.1); Chloride, Blood 96 mmol/L (98-108); Creatinine, Blood 4.67 mg/dL (0.60-1.20); Glomerular Filtration Rate 14 (60-); Glucose, Blood 74 mg/dL (70-99); Phosphorus, Blood 8.7 mg/dL (2.5-4.9); Potassium, Blood 5.5 mmol/L (3.5-5.5); Sodium, Blood 129 mmol/L (136-145)
--- NOTE | 2022-10-04 07:33 | NUR ---
SHIFT SUMMARY A&O X 2-3. VSS. BED REST. PAIN CONTROLLED WITH PRN IV DILAUDID. HOSPITAL BED CHANGED OUT FOR AIR BED THIS SHIFT. WOUND TO RT LEG RED, EDEMATOUS, AND, WEEPING. BLISTER TO LATERAL RT LEG. CHUX PAD CHANGED. PRASAD CATHETER PATENT WITH MINIMAL URINE OUTPUT. PT WEARS CPAP AT NIGHT. PT HAD CRITICAL PHOSPHORUS THIS AM. UX UI DESIGNER HOSPITALIST NOTIFIED.
[2022-10-04 08:11] LABS: COMPLEMENT C3, SERUM 181 mg/dL (82-167); COMPLEMENT C4, SERUM 33 mg/dL (12-38)
[2022-10-04 09:38] LABS: Bicarbonate Venous 16.6 mmol/L (24.0-30.0); PCO2 Venous 31.4 mmHg (38-42)
--- NOTE | 2022-10-04 10:36 | NUR ---
Received pt from medical floor, LORENA Branham accompanying the pt. He is alert to person, , place, and generally to date and time. STruggles to recall specific details at times. Ex- Veronique and pt's son are at the bedside. Pt has a lot of pain in his right leg, particularly with any repositioning. He is on 4 l/min of oxygen delivery by n.c. and showing normal sinus rhythm by telemetry at time of transfer. Lung sounds are generally clear, with some crackles noted in the posterior bases. Abdomen obese with active bowel tones. Cordon catheter in place, draining a small amount of yellow urine. Legs are extremely edematous, with significant redness, blistering, and weeping of the right lower extremity.
--- NOTE | 2022-10-04 11:35 | NUR ---
LATE ENTRY: PT WAS MOANING ON SHIFT CHANGE THIS AM. PER NOC RN SHE DID NOT GIVE DILAUDID FOR PAIN DUE TO KIDNEY FX. PT HAD VERY LITTLE URINE OUTPUT LAST NIGHT. PT EVALUATED BY DR. BRYAN THIS AM AND SHE GAVE ORDER TO TX TO PCU. VBG WAS TO BE OBTAINED PRIOR TO GIVING PAIN MEDICATION WHICH WAS CHANGED TO FENTANYL. PT ALSO EVALUATED BY DR. WEEKS AND NEW ORDERS OBTAINED. PT WAS VERY DIFFICULT TO GET LAB DRAW FROM. PT TX TO PCU 13. FAMILY AWARE AND WITH PT. REPORT GIVEN TO TOMA HERRERA.
--- NOTE | 2022-10-04 12:38 | NUR ---
Repositioned on bedpan; pt attempting to have BM. Premedicated with fentanyl due to pain 8-9/10 in right leg.
[2022-10-04 13:28] LABS: Albumin, Blood 1.7 g/dL (3.4-5.0); Anion Gap 19 mmol/L (6-16); Blood Urea Nitrogen 114 mg/dL (8-24); Bun/Creatinine Ratio 17.5 (12.0-20.0); CO2, Blood 15 mmol/L (21-32); Calcium, Blood 7.4 mg/dL (8.5-10.1); Chloride, Blood 95 mmol/L (98-108); Glomerular Filtration Rate 9 (60-); Glucose, Blood 90 mg/dL (70-99); Phosphorus, Blood 8.6 mg/dL (2.5-4.9); Potassium, Blood 4.9 mmol/L (3.5-5.5); Sodium, Blood 129 mmol/L (136-145)
--- NOTE | 2022-10-04 15:23 | NUR ---
PT assisted off of bedpan. He is passing gas, but unable to have BM today yet. Chux pads and massey changed again as they were saturated with serous fluids for the third time since the patient arrived in PCU today. Pt is tolerating his leg pain. Consultation with Dr. Vieira noted in orders.
--- NOTE | 2022-10-04 17:05 | NUR ---
Transferred from the air bed to the bariatric bed, linens and chux pads changed again due to soiling. Legs are elevated on pillows. Vital signs checked, stable. Pt is no longer requiring any oxygen.
[2022-10-04 20:07] LABS: SARS-Cov-2 (COVID-19) PCR, MMC NEGATIVE (NEGATIVE)
--- NOTE | 2022-10-04 22:58 | NUR ---
pt being transported to [facility] will be going by ambulance report called and recieved by radhames shah at [facility]. will call when pt is picked up
[2022-10-09 16:10] LABS: ANTIMYELOPEROXIDASE (MPO) ABS <0.2 units (0.0-0.9); ANTIPROTEINASE 3 (PR-3) ABS <0.2 units (0.0-0.9); ATYPICAL PANCA <1:20 titer (Neg:<1:20); CYTOPLASMIC (C-ANCA) <1:20 titer (Neg:<1:20); PERINUCLEAR (P-ANCA) <1:20 titer (Neg:<1:20)
[2022-10-10 06:16] LABS: M-SPIKE, % Comment: % (Not Observed); PROTEIN,TOTAL,URINE 53.9 mg/dL (Not Estab.)
== END 2022-10-04 23:23 | disposition short-term general hospital (02) | DRG 871 ==
LOC: ER 11:15 → PCU 17:04 → MEDS 17:04 → PCU 10-04 09:54
PROVIDERS: Family Medicine; Internal Medicine; Internal Medicine Nephrology; Nurse Practitioner Acute Care; Physician Assistant; ADMIT Hospitalist
DX: A41.9 Sepsis, unspecified organism (principal); G92.8 Other toxic encephalopathy; M72.6 Necrotizing fasciitis; J96.01 Acute respiratory failure with hypoxia; I50.32 Chronic diastolic (congestive) heart failure; E87.1 Hypo-osmolality and hyponatremia; E87.20 Acidosis, unspecified; L03.115 Cellulitis of right lower limb; Z68.42 Body mass index [BMI] 45.0-49.9, adult; I13.0 Hypertensive heart and chronic kidney disease with heart failure and stage 1 through stage 4 chronic kidney disease, or unspecified chronic kidney disease; N04.8 Nephrotic syndrome with other morphologic changes; N17.9 Acute kidney failure, unspecified; F10.239 Alcohol dependence with withdrawal, unspecified; Z20.822 Contact with and (suspected) exposure to COVID-19; Z28.21 Immunization not carried out because of patient refusal; E83.42 Hypomagnesemia; N18.2 Chronic kidney disease, stage 2 (mild); R65.20 Severe sepsis without septic shock; B19.20 Unspecified viral hepatitis C without hepatic coma; E87.70 Fluid overload, unspecified; J44.9 Chronic obstructive pulmonary disease, unspecified; E87.5 Hyperkalemia; E83.39 Other disorders of phosphorus metabolism; I89.0 Lymphedema, not elsewhere classified; F10.20 Alcohol dependence, uncomplicated; E66.01 Morbid (severe) obesity due to excess calories; Z88.6 Allergy status to analgesic agent; Z79.899 Other long term (current) drug therapy
CPT/HCPCS: 36415; 73590; 73700; 76770; 80048; 80053; 80069; 80202; 81001; 82140; 82232; 82570; 82803; 83516; 83520; 83605; 83690; 83735; 83930; 84156; 84166; 84300; 85025; 85027; 85651; 86037; 86140; 86160; 87040; 87070; 87086; 87205; 93971; 94660; 94762; 96365; 96366; 96375; 99285-25; A9270; C1751; J0690; J1170; J1644; J1885; J2060; J2405; J3010; J3370; J3475; J7030; J7040; J7050; P9047; U0004

== ENCOUNTER 2022-12-03 01:56 | Day surgery (SDC) | payer OTHER ==
[~2022-12-03 01:56] MED LIST changes: +POTA8; +SPIR25 PO
== END 2022-12-03 23:04 | disposition home or self-care (01) ==
LOC: WOUND 01:56
DX: I87.331 Chronic venous hypertension (idiopathic) with ulcer and inflammation of right lower extremity (principal); I89.0 Lymphedema, not elsewhere classified; I87.2 Venous insufficiency (chronic) (peripheral); S81.801A Unspecified open wound, right lower leg, initial encounter; R60.0 Localized edema
CPT/HCPCS: A9270; G0463

== ENCOUNTER 2022-12-13 02:59 | Day surgery (SDC) | payer OTHER | END 2022-12-13 23:06 | disposition home or self-care (01) | LOC: WOUND 02:59 | DX: I87.331 Chronic venous hypertension (idiopathic) with ulcer and inflammation of right lower extremity (principal); I87.2 Venous insufficiency (chronic) (peripheral); I89.0 Lymphedema, not elsewhere classified; L97.813 Non-pressure chronic ulcer of other part of right lower leg with necrosis of muscle; L97.812 Non-pressure chronic ulcer of other part of right lower leg with fat layer exposed; T81.32XA Disruption of internal operation (surgical) wound, not elsewhere classified, initial encounter; S81.801A Unspecified open wound, right lower leg, initial encounter | CPT/HCPCS: A9270 ==

== ENCOUNTER 2022-12-20 03:48 | Day surgery (SDC) | payer OTHER | END 2022-12-20 23:15 | disposition home or self-care (01) | LOC: WOUND 03:48 | DX: I87.331 Chronic venous hypertension (idiopathic) with ulcer and inflammation of right lower extremity (principal); I87.2 Venous insufficiency (chronic) (peripheral); L97.815 Non-pressure chronic ulcer of other part of right lower leg with muscle involvement without evidence of necrosis; L97.812 Non-pressure chronic ulcer of other part of right lower leg with fat layer exposed; L97.112 Non-pressure chronic ulcer of right thigh with fat layer exposed; I89.0 Lymphedema, not elsewhere classified | CPT/HCPCS: A9270; G0463 ==

== ENCOUNTER 2022-12-26 00:46 | Day surgery (SDC) | payer OTHER | END 2022-12-26 22:43 | disposition home or self-care (01) | LOC: WOUND 00:46 | DX: I87.331 Chronic venous hypertension (idiopathic) with ulcer and inflammation of right lower extremity (principal); I87.2 Venous insufficiency (chronic) (peripheral); I89.0 Lymphedema, not elsewhere classified; L97.812 Non-pressure chronic ulcer of other part of right lower leg with fat layer exposed; L97.112 Non-pressure chronic ulcer of right thigh with fat layer exposed; T81.31XA Disruption of external operation (surgical) wound, not elsewhere classified, initial encounter | CPT/HCPCS: A9270 ==

== ENCOUNTER 2023-01-03 03:35 | Day surgery (SDC) | payer OTHER | END 2023-01-03 22:37 | disposition home or self-care (01) | LOC: WOUND 03:35 | DX: T81.49XA Infection following a procedure, other surgical site, initial encounter (principal); I89.0 Lymphedema, not elsewhere classified; I87.311 Chronic venous hypertension (idiopathic) with ulcer of right lower extremity; F17.200 Nicotine dependence, unspecified, uncomplicated | CPT/HCPCS: 99406; A9270 ==

== ENCOUNTER 2023-01-22 03:24 | Emergency (ER) | payer OTHER ==
[~2023-01-22] VITALS: Ht 185.4 cm; Wt 151.9 kg
[2023-01-22 05:10] LABS: BASOPHILS ABSOLUTE AUTO 0.08 K/mm3 (0.00-0.23); BASOPHILS PERCENT AUTO 1 % (0-2); EOSINOPHILS ABSOLUTE AUTO 0.26 K/mm3 (0.00-0.68); EOSINOPHILS PERCENT AUTO 4 % (0-6); Hematocrit 40.5 % (37.0-53.0); Hemoglobin 12.7 g/dL (13.5-17.5); IMMATURE GRAN ABSOLUTE AUTO 0.01 K/mm3 (0.00-0.10); IMMATURE GRAN PERCENT AUTO 0 % (0-1); LYMPHOCYTES ABSOLUTE AUTO 1.57 K/mm3 (0.84-5.20); LYMPHOCYTES PERCENT AUTO 23 % (21-46); MONOCYTES ABSOLUTE AUTO 0.89 K/mm3 (0.16-1.47); MONOCYTES PERCENT AUTO 13 % (4-13); Mean Corpuscular HGB 28.3 pg (26.0-34.0); Mean Corpuscular HGB Conc 31.4 g/dL (31.5-36.5); Mean Corpuscular Volume 90 fL (80-100); Mean Platelet Volume 10.3 fL (9.1-12.4); NEUTROPHILS ABSOLUTE AUTO 4.15 K/mm3 (1.96-9.15); NEUTROPHILS PERCENT AUTO 60 % (41-73); Platelet Count 263 K/mm3 (150-400); RDW Coefficient Variation 14.1 % (11.7-14.2); Red Blood Cell Count 4.48 M/mm3 (4.30-5.90); White Blood Cell Count 6.96 K/mm3 (4.00-11.30)
[2023-01-22 05:52] LABS: Albumin/Globulin Ratio 0.7 (0.8-1.8); Bilirubin, Total 0.2 mg/dL (0.1-1.0); Calcium, Blood 8.8 mg/dL (8.5-10.1); Creatinine, Blood 0.72 mg/dL (0.60-1.20); Globulin, Blood 4.4 g/dL (2.2-4.0); Potassium, Blood 4.1 mmol/L (3.5-5.5); Total Protein, Blood 7.4 g/dL (6.4-8.2)
[2023-01-22] MEDS ORDERED: CEPH500 PO (06:41)
== END 2023-01-22 06:49 | disposition home or self-care (01) ==
LOC: ER 03:24
PROVIDERS: Student in an Organized Health Care Education/Training Program
DX: L03.115 Cellulitis of right lower limb (principal); I89.0 Lymphedema, not elsewhere classified; Z88.5 Allergy status to narcotic agent; Z79.899 Other long term (current) drug therapy; I10 Essential (primary) hypertension; G47.33 Obstructive sleep apnea (adult) (pediatric); Z87.891 Personal history of nicotine dependence
CPT/HCPCS: 36415; 80053; 83605; 83880; 85025; 96374; 96376; 99283-25; J3010

== ENCOUNTER 2023-01-23 02:37 | Day surgery (SDC) | payer OTHER | END 2023-01-23 23:13 | disposition home or self-care (01) | LOC: WOUND 02:37 | DX: T81.41XA Infection following a procedure, superficial incisional surgical site, initial encounter (principal); L97.812 Non-pressure chronic ulcer of other part of right lower leg with fat layer exposed; L97.112 Non-pressure chronic ulcer of right thigh with fat layer exposed; I89.0 Lymphedema, not elsewhere classified; I87.311 Chronic venous hypertension (idiopathic) with ulcer of right lower extremity; I87.2 Venous insufficiency (chronic) (peripheral); Z72.0 Tobacco use | CPT/HCPCS: 99406 ==

== ENCOUNTER 2023-07-02 03:48 | Emergency (ER) | payer OTHER ==
[~2023-07-02] VITALS: Ht 185.4 cm; Wt 161.0 kg
[~2023-07-02 03:48] MED LIST changes: -POTA8; +POTA8 PO
[2023-07-02 04:06] VITALS: BP 152/93
[2023-07-02] MEDS ORDERED: CYCL10 PO (04:06)
== END 2023-07-02 04:21 | disposition home or self-care (01) ==
LOC: ER 03:48
DX: S39.012A Strain of muscle, fascia and tendon of lower back, initial encounter (principal); M25.472 Effusion, left ankle; I10 Essential (primary) hypertension; K75.9 Inflammatory liver disease, unspecified; Z85.05 Personal history of malignant neoplasm of liver; Z88.5 Allergy status to narcotic agent; F17.200 Nicotine dependence, unspecified, uncomplicated; X50.1XXA Overexertion from prolonged static or awkward postures, initial encounter
CPT/HCPCS: 99283

== ENCOUNTER 2023-11-07 08:42 | Day surgery (SDC) | payer OTHER | END 2023-11-07 22:55 | disposition home or self-care (01) | LOC: WOUND 08:42 | DX: I89.0 Lymphedema, not elsewhere classified (principal); L97.812 Non-pressure chronic ulcer of other part of right lower leg with fat layer exposed; L97.822 Non-pressure chronic ulcer of other part of left lower leg with fat layer exposed; I87.2 Venous insufficiency (chronic) (peripheral); Z72.0 Tobacco use; J44.9 Chronic obstructive pulmonary disease, unspecified; G47.30 Sleep apnea, unspecified; I50.9 Heart failure, unspecified; I25.10 Atherosclerotic heart disease of native coronary artery without angina pectoris | CPT/HCPCS: 99406; G0463 ==

== ENCOUNTER 2023-11-21 04:55 | Day surgery (SDC) | payer OTHER | END 2023-11-21 22:45 | disposition home or self-care (01) | LOC: WOUND 04:55 | DX: I89.0 Lymphedema, not elsewhere classified (principal); L97.812 Non-pressure chronic ulcer of other part of right lower leg with fat layer exposed; L97.822 Non-pressure chronic ulcer of other part of left lower leg with fat layer exposed; R60.0 Localized edema; I87.2 Venous insufficiency (chronic) (peripheral); Z72.0 Tobacco use | CPT/HCPCS: G0463 ==

== ENCOUNTER 2023-12-18 02:41 | Day surgery (SDC) | payer OTHER | END 2023-12-18 23:08 | disposition home or self-care (01) | LOC: WOUND 02:41 | DX: I89.0 Lymphedema, not elsewhere classified (principal); L97.812 Non-pressure chronic ulcer of other part of right lower leg with fat layer exposed; L97.822 Non-pressure chronic ulcer of other part of left lower leg with fat layer exposed; I87.2 Venous insufficiency (chronic) (peripheral); R60.0 Localized edema; Z72.0 Tobacco use | CPT/HCPCS: G0463 ==

== ENCOUNTER 2024-03-18 09:25 | Emergency (ER) | payer OTHER ==
[~2024-03-18] VITALS: Ht 185.4 cm; Wt 170.1 kg
[2024-03-18 09:32] VITALS: BP 167/93
[2024-03-18] MEDS ORDERED: Ketorolac Tromethamine 30mg Vial IM ONE (11:10)
[2024-03-18] MEDS ORDERED: Acetaminophen 500 MG Tab PO ONE (11:10)
== END 2024-03-18 11:28 | disposition home or self-care (01) ==
LOC: ER 09:25
DX: S49.91XA Unspecified injury of right shoulder and upper arm, initial encounter (principal); S89.92XA Unspecified injury of left lower leg, initial encounter; I10 Essential (primary) hypertension; M54.50 Low back pain, unspecified; J44.9 Chronic obstructive pulmonary disease, unspecified; W18.30XA Fall on same level, unspecified, initial encounter; Z87.891 Personal history of nicotine dependence; Z88.5 Allergy status to narcotic agent; Z79.899 Other long term (current) drug therapy
CPT/HCPCS: 72100; 73030; 73562-LT; 99284-25

== ENCOUNTER 2025-08-17 12:56 | Emergency (ER) | payer OTHER ==
[~2025-08-17] VITALS: Ht 182.9 cm; Wt 147.4 kg
[2025-08-17 13:14] VITALS: BP 137/114
[2025-08-17] MEDS ORDERED: METPRE4DP PO (13:17)
[2025-08-17] MEDS ORDERED: IBUP800 PO (13:17)
== END 2025-08-17 13:40 | disposition home or self-care (01) ==
LOC: ER 12:56
DX: M54.32 Sciatica, left side (principal); I10 Essential (primary) hypertension; J44.9 Chronic obstructive pulmonary disease, unspecified; Z87.891 Personal history of nicotine dependence; Z88.8 Allergy status to other drugs, medicaments and biological substances; Z79.899 Other long term (current) drug therapy
CPT/HCPCS: 99282